=== PATIENT | male | born 1960 | race American Indian/Alaskan Native ===

== ENCOUNTER 2021-07-03 21:24 | Inpatient (IN) | payer MEDICARE ==
[2021-07-03] MEDS ORDERED: FUROSEMIDE 40 MG/4 ML INJ IV ONE (21:37)
[2021-07-03] MEDS ORDERED: MIDAZOLAM/NS Drip 100mg/100ml 100 MG/100 ML BAG IV ONE (21:55)
[2021-07-03] MEDS ORDERED: MIDAZOLAM/NS Drip 100mg/100ml 100 MG/100 ML BAG IV SCH (22:00)
[2021-07-03] MEDS ORDERED: NITROGLYCERIN DRIP 50 MG/250 ML BOTTLE IV SCH (22:00)
[2021-07-03] MEDS ORDERED: MIDAZOLAM 5 MG/5 ML INJ MDV IV ONE (22:03)
[2021-07-03 22:29] LABS: Hematocrit 55.6 % (35.5-45.6); Hemoglobin 17.7 gm/dl (11.8-15.2); Mean Corpuscular HGB Conc 32 % (32-34); Mean Corpuscular Volume 90 fl (84-94); Platelet Count 158 K/mm3 (140-440); Red Blood Count 6.19 M/mm3 (3.65-5.03); Red Cell Distribution Width 13.4 % (13.2-15.2)
[2021-07-03 22:36] LABS: Albumin 4.1 g/dL (3.9-5); Calcium 9.1 mg/dL (8.4-10.2)
--- NOTE | 2021-07-03 22:44 | XRay Report ---
CHEST 1 VIEW 07/03/2021 10:06 PM INDICATION / CLINICAL INFORMATION: Dyspnea. COMPARISON: None FINDINGS: SUPPORT DEVICES: Endotracheal tube terminates 4.6 cm above ryan. HEART / MEDIASTINUM: No significant abnormality. LUNGS / PLEURA: Diffuse bilateral airspace disease, slightly worsened right lung. No pneumothorax. ADDITIONAL FINDINGS: No significant additional findings. IMPRESSION: 1. Bilateral airspace disease concerning for pneumonia. 2. Endotracheal tube is in good position. Signer Name: Rhys Cisneros MD Signed: 07/03/2021 10:39 PM Workstation Name: [id number]
[2021-07-03] MEDS ORDERED: cefTRIAXone/NS 1 GM/50 ML 1 GM/50 ML BAG IV ONE (23:02)
--- NOTE | 2021-07-03 23:35 | Emergency Department Report ---
ED Shortness of Breath HPI - General Chief Complaint: Dyspnea/Respdistress Stated Complaint: CARDIAC ARREST Time Seen by Provider: 07/03/21 21:37 Source: EMS Mode of arrival: Stretcher Limitations: Other - History of Present Illness Initial Comments: Possible pulmonary edema. Patient was transferred to the er for rispiratory distress. ems gave 2.5 mg ativan in route so the patient could tolerate the CPap. Patient arrested as soon as they walked in the door. MD Complaint: shortness of breath -: Gradual, days(s) Pain Scale: 8 Consistency: constant Known History Of: diabetes, other Associated Symptoms: chest pain, sputum production Treatments Prior to Arrival: oxygen - Related Data Allergies Allergy/AdvReac Type Severity Reaction Status Date / Time No Known Allergies Allergy Verified 07/03/21 21:54 ED Review of Systems ROS: Stated complaint: CARDIAC ARREST Other details as noted in HPI Comment: Unobtainable due to pts medical conditions ED Past Medical Hx - Past Medical History Previous Medical History?: No Hx Hypertension: Yes Hx Diabetes: Yes - Surgical History Past Surgical History?: No ED Physical Exam - General Limitations: Other General appearance: alert, in distress, obese - Head Head exam: Present: atraumatic, normocephalic - Eye Eye exam: Present: normal appearance - ENT ENT exam: Present: mucous membranes moist - Neck Neck exam: Present: normal inspection - Respiratory Respiratory exam: Present: rales, rhonchi, accessory muscle use, decreased breath sounds. Absent: respiratory distress - Cardiovascular Cardiovascular Exam: Present: normal rhythm, tachycardia. Absent: systolic murmur, diastolic murmur, rubs, gallop - GI/Abdominal GI/Abdominal exam: Present: soft, normal bowel sounds - Rectal Rectal exam: Present: deferred - Extremities Exam Extremities exam: Present: normal inspection - Back Exam Back exam: Present: normal inspection - Neurological Exam Neurological exam: Present: alert, oriented X3 - Psychiatric Psychiatric exam: Present: normal affect, normal mood - Skin Skin exam: Present: warm, dry, intact, normal color. Absent: rash ED Course Vital Signs 07/03/21 22:46 Pulse Rate 90 Respiratory 0 L Rate Blood Pressure 78/55 O2 Sat by Pulse 96 Oximetry - Reevaluation(s) Reevaluation #1: 07/03/21 23:30 intubated on arrival pt bit the tube and had to re intubate 07/03/21 23:38 started on nitro drip , lasix and ventillation 07/03/21 23:[address] Pathak for ICU admission - Intubation Time Out Performed: Yes Sedative: Versed Paralytic: Succinylcholine Mg Given: 100 Laryngoscope: fiberoptic video scope Size: 4 Assist Device Used: fiberoptic device ET Tube Size: 7.5 Tube Secured Depth (cm): 24 Tube Secured Location: lips Tube Placement Confirmation: visualized tube passing t, equal breath sounds bilat, no breath sounds over epi, confirmation by capnometr Patient Tolerated Procedure: well, no complications ED Medical Decision Making - Lab Data Result diagrams: 07/03/21 21:54 07/03/21 21:54 Critical care attestation.: If time is entered above; I have spent that time in minutes in the direct care of this critically ill patient, excluding procedure time. ED Disposition Clinical Impression: SOB (shortness of breath), Acute respiratory failure, Acute pulmonary edema Disposition: ADMITTED INPATIENT Is pt being admited?: Yes Does the pt Need Aspirin: No Condition: Critical Instructions: Pulmonary Edema (ED)
[2021-07-03 23:41] LABS: INR 0.9 (0.87-1.13)
[2021-07-03 23:43] LABS: Creatine Kinase MB 11.1 ng/mL (0.0-4.0)
[2021-07-04 01:01] LABS: Alanine Aminotransferase 26 units/L (7-56); Albumin 3.9 g/dL (3.9-5)
[2021-07-04 01:12] LABS: Bilirubin,Direct < 0.2 mg/dL (0-0.2)
[2021-07-04] MEDS ORDERED: MORPHINE 2 MG/1 ML INJ IV PRN (02:20)
[2021-07-04] MEDS ORDERED: ONDANSETRON 4 MG/2 ML INJ IV PRN (02:20)
[2021-07-04] MEDS ORDERED: HYDROmorphone 1 MG/1 ML INJ IV PRN (02:20)
[2021-07-04] MEDS ORDERED: ACETAMINOPHEN 325 MG TAB PO PRN (02:20)
[2021-07-04] MEDS ORDERED: ALBUTEROL 2.5 MG/3 ML NEBU IH PRN (02:20)
[2021-07-04 02:30] LABS: Eosinophils % (Manual) 0 % (0.0-4.3); Total Cells Counted 100; Toxic Granulation Few
--- NOTE | 2021-07-04 02:30 | History and Physical Report ---
History of Present Illness Date of examination: 07/04/21 Date of admission: 07/04/21 Chief complaint: Shortness of breath Cardiac arrest History of present illness: 61 years old male with history of hypertension and diabetes was brought to the hospital because of respiratory distress. EMS brought the patient for possible pulmonary edema. EMS gave 2.5 mg of Ativan in route so that patient could tolerate the CPAP. Patient arrested as soon as they walked in the emergency room door. Subsequently patient was intubated. In the emergency room patient WBC is 11.8, glucose 454, lactic acid 7.20. Chest x-ray shows bilateral airspace disease concerning for pneumonia. proBNP 342.5. patient clinically found congestive heart failure exacerbation. So going to admit to the ICU will consult cardiology as well as critical care for evaluation Past History Past Medical History: diabetes, hypertension Medications and Allergies Allergies Allergy/AdvReac Type Severity Reaction Status Date / Time No Known Allergies Allergy Verified 07/03/21 21:54 Active Meds: Active Medications Nitroglycerin/Dextrose (Tridil Drip 50mg/250ml) 50 mg in 250 mls @ 3 mls/hr IV TITR [facility]; Protocol Last Admin: 07/03/21 22:10 Dose: 10 mcg/min, 3 mls/hr MIDAZOLAM/NS Drip 100mg/100ml (Midazolam/Ns Drip 100mg/100ml) 100 mg in 100 mls @ 1 mls/hr IV TITR [facility]; Protocol Last Admin: 07/03/21 22:00 Dose: 5 mg/hr, 5 mls/hr Propofol (Diprivan 10 Mg/Ml) 1,000 mg in 100 mls @ 2.994 mls/hr IV TITR [facility]; Protocol Last Admin: 07/04/21 00:34 Dose: 50 mcg/kg/min, 29.937 mls/hr Insulin Human Lispro (Insulin Lispro 100 Unit/Ml) 0 unit SUB-Q Q6H [facility]; Protocol Review of Systems Cardiovascular: orthopnea, edema, shortness of breath, dyspnea on exertion, paroxysmal nocturnal dyspnea Respiratory: shortness of breath, dyspnea on exertion Exam - Constitutional Vitals: Temp Pulse Resp BP Pulse Ox 98.4 F 63 30 H 114/62 98 07/04/21 00:47 07/04/21 01:01 07/04/21 01:01 07/04/21 01:01 07/04/21 01:01 General appearance: Present: severe distress - EENT Eyes: Present: PERRL ENT: hearing intact, clear oral mucosa - Neck Neck: Present: supple, normal ROM - Respiratory Respiratory effort: normal Respiratory: bilateral: rales - Cardiovascular Heart Sounds: Present: S1 & S2. Absent: rub, click - Extremities Extremities: pulses symmetrical, No edema Peripheral Pulses: within normal limits - Abdominal General gastrointestinal: Present: soft, non-tender, non-distended, normal bowel sounds Male genitourinary: Present: normal - Integumentary Integumentary: Present: clear, warm, dry - Musculoskeletal Musculoskeletal: gait normal, strength equal bilaterally - Psychiatric Psychiatric: appropriate mood/affect, intact judgment & insight - Neurologic Neurologic: CNII-XII intact, moves all extremities HEART Score - HEART Score Troponin: Troponin T 0.015 ng/mL (0.00-0.029) 07/03/21 21:54 Results - Labs CBC & Chem 7: 07/03/21 21:54 07/03/21 21:54 Labs: Laboratory Last Values WBC 11.8 K/mm3 (4.5-11.0) H 07/03/21 21:54 RBC 6.19 M/mm3 (3.65-5.03) H 07/03/21 21:54 Hgb 17.7 gm/dl (11.8-15.2) H 07/03/21 21:54 Hct 55.6 % (35.5-45.6) H 07/03/21 21:54 MCV 90 fl (84-94) 07/03/21 21:54 MCH 29 pg (28-32) 07/03/21 21:54 MCHC 32 % (32-34) 07/03/21 21:54 RDW 13.4 % (13.2-15.2) 07/03/21 21:54 Plt Count 158 K/mm3 (140-440) 07/03/21 21:54 Lymph % (Auto) Camera Control Operator 07/03/21 21:54 [place] % (Auto) Camera Control Operator 07/03/21 21:54 Eos % (Auto) Camera Control Operator 07/03/21 21:54 Baso % (Auto) Camera Control Operator 07/03/21 21:54 Lymph # (Auto) Camera Control Operator 07/03/21 21:54 [place] # (Auto) Camera Control Operator 07/03/21 21:54 Eos # (Auto) Camera Control Operator 07/03/21 21:54 Baso # (Auto) Camera Control Operator 07/03/21 21:54 Seg Neutrophils % Camera Control Operator 07/03/21 21:54 Seg Neutrophils # Camera Control Operator 07/03/21 21:54 PT 13.1 Sec. (12.2-14.9) 07/03/21 22:56 INR 0.90 (0.87-1.13) 07/03/21 22:56 ABG pH 7.127 (7.320-7.450) L 07/03/21 22:00 POC ABG pCO2 56.8 mmHg (32.0-48.0) H 07/03/21 22:00 POC ABG pO2 109.0 mmHg (83-108) H 07/03/21 22:00 POC ABG HCO3 18.3 07/03/21 22:00 ABG O2 Saturation 96.8 (0-100) 07/03/21 22:00 POC ABG Base Excess -11.7 07/03/21 22:00 ABG Hemoglobin 18.5 (12.0-17.5) H 07/03/21 22:00 ABG Oxyhemoglobin 96.3 (94-98) 07/03/21 22:00 ABG Methemoglobin 0.2 (0.0-1.5) 07/03/21 22:00 Carboxyhemoglobin 0.3 (0.5-1.5) L 07/03/21 22:00 FiO2 % 100 07/03/21 22:00 Sodium 137 mmol/L (137-145) 07/03/21 21:54 Potassium 4.0 mmol/L (3.6-5.0) 07/03/21 21:54 Chloride 99.6 mmol/L (98-107) 07/03/21 21:54 Carbon Dioxide 18 mmol/L (22-30) L 07/03/21 21:54 Anion Gap 23 mmol/L 07/03/21 21:54 BUN 17 mg/dL (9-20) 07/03/21 21:54 Creatinine 1.5 mg/dL (0.8-1.3) H 07/03/21 21:54 Estimated GFR 57 ml/min 07/03/21 21:54 BUN/Creatinine Ratio 11 % 07/03/21 21:54 Glucose 454 mg/dL (75-100) H 07/03/21 21:54 POC Glucose 446 mg/dL (70-105) H 07/04/21 00:55 Lactic Acid 7.20 mmol/L (0.7-2.0) H* 07/03/21 21:54 Calcium 9.1 mg/dL (8.4-10.2) 07/03/21 21:54 Magnesium 2.20 mg/dL (1.7-2.3) 07/03/21 21:54 Total Bilirubin 0.40 mg/dL (0.1-1.2) 07/04/21 00:26 Direct Bilirubin < 0.2 mg/dL (0-0.2) 07/04/21 00:26 Indirect Bilirubin 0.2 mg/dL 07/04/21 00:26 AST 27 units/L (5-40) 07/04/21 00:26 ALT 26 units/L (7-56) 07/04/21 00:26 Alkaline Phosphatase 90 units/L (35-129) 07/04/21 00:26 Total Creatine Kinase 596 units/L (55-170) H 07/03/21 21:54 CK-MB (CK-2) 11.1 ng/mL (0.0-4.0) H 07/03/21 21:54 CK-MB (CK-2) Rel Index 1.8 (0-4) 07/03/21 21:54 Troponin T 0.015 ng/mL (0.00-0.029) 07/03/21 21:54 NT-Pro-B Natriuret Pep 342.5 pg/mL (0-900) 07/03/21 23:04 Total Protein 7.1 g/dL (6.3-8.2) 07/04/21 00:26 Albumin 3.9 g/dL (3.9-5) 07/04/21 00:26 Albumin/Globulin Ratio 1.2 % 07/04/21 00:26 Lipase 21 units/L (13-60) 07/03/21 21:54 HIV 1&2 Antibody Rapid Non react (Non React) 07/04/21 00:26 HIV P24 Antigen Non react (Non React) 07/04/21 00:26 - Imaging and Cardiology Chest x-ray: report reviewed Assessment and Plan VTE prophylaxis?: Chemical Plan of care discussed with patient/family: Yes - Patient Problems (1) Acute exacerbation of CHF (congestive heart failure) Current Visit: Yes Status: Acute Plan to address problem: Admit the patient to the medical ICU. Patient is on vent. Fluid restriction. Maintain input output. Daily weight. Lasix 40 mg IV every 12 hours. Echocardiogram. Cardiology evaluation (2) Acute respiratory failure Current Visit: Yes Status: Acute Plan to address problem: Patient is a status post intubation. DuoNeb by nebulizer every 4 hours. Albuterol via nebulizer every 4 hours as needed. Critical care evaluation (3) Pneumonia Current Visit: Yes Status: Acute Plan to address problem: Rocephin 2 g IV daily. Zithromax to 50 mg p.o. daily. DuoNeb by nebulizer every 4 hours. Blood culture and sputum culture. Critical care evaluation (4) Hypertension Current Visit: Yes Status: Acute Plan to address problem: Hydralazine 10 mg IV every 6 hours as needed. We continue the home medication (5) Diabetes Current Visit: Yes Status: Acute Plan to address problem: Humalog sliding scale every 6 hours with moderate dose coverage. Diabetic education (6) DVT prophylaxis Current Visit: Yes Status: Acute Plan to address problem: Heparin 5000 units subcu every 8 hours for DVT prophylaxis. Pepcid 20 mg p.o. twice daily for GI prophylaxis. Patient is a full code
[2021-07-04] MEDS ORDERED: DEXTROSE 50% IN WATER (25GM) 50 ML SYRINGE IV PRN (02:33)
[2021-07-04 02:42] LABS: Platelet Estimate Consistent w Auto; RBC Morphology Normal
[2021-07-04] MEDS: cefTRIAXone/NS 2 GM/100 ML 2 GM/100 ML BAG IV SCH (05:22)
[2021-07-04] MEDS ORDERED: FUROSEMIDE 40 MG/4 ML INJ IV SCH (06:00)
[2021-07-04] MEDS: INSULIN LISPRO 100 UNIT/ML SUB-Q SCH ×4 (06:44→21:57)
[2021-07-04 06:53] LABS: Hepatitis B Surface Antigen Non-Reactive (Negative); Hepatitis C Virus Antibody Non-Reactive (NonReactive)
[2021-07-04] MEDS ORDERED: fentaNYL 100 MCG/2 ML INJ IV PRN (08:56)
[2021-07-04] MEDS ORDERED: fentaNYL DRIP Premix 2,000 MCG/100 ML BAG IV SCH (09:00)
--- NOTE | 2021-07-04 09:10 | Consultation ---
History of Present Illness Consult date: 07/04/21 Reason for Consult: Post cardiac arrest in route History of present illness: Shortness of breath Cardiac arrest History of present illness: 61 years old male with history of hypertension and diabetes was brought to the hospital because of respiratory distress. EMS brought the patient for possible pulmonary edema. EMS gave 2.5 mg of Ativan in route so that patient could tolerate the CPAP. Patient arrested as soon as they walked in the emergency room door. Subsequently patient was intubated. In the emergency room patient WBC is 11.8, glucose 454, lactic acid 7.20. Chest x-ray shows bilateral airspace disease concerning for pneumonia. proBNP 342.5. patient clinically found congestive heart failure exacerbation. So going to admit to the ICU will consult cardiology as well as critical care for evaluation today neurology consulted for evaluation of status CT/ MRI brain is pending he is on propofol and fentanyl intubated G#454 lactic acid is #7.2--3.7 Bun/cr#17/1.5 Past History Past Medical History: diabetes, hypertension Medications and Allergies Allergies Allergy/AdvReac Type Severity Reaction Status Date / Time No Known Allergies Allergy Verified 07/03/21 21:54 Active Meds: Active Medications Nitroglycerin/Dextrose (Tridil Drip 50mg/250ml) 50 mg in 250 mls @ 3 mls/hr IV TITR [facility]; Protocol Last Admin: 07/03/21 22:10 Dose: 10 mcg/min, 3 mls/hr MIDAZOLAM/NS Drip 100mg/100ml (Midazolam/Ns Drip 100mg/100ml) 100 mg in 100 mls @ 1 mls/hr IV TITR [facility]; Protocol Last Admin: 07/03/21 22:00 Dose: 5 mg/hr, 5 mls/hr Propofol (Diprivan 10 Mg/Ml) 1,000 mg in 100 mls @ 2.994 mls/hr IV TITR [facility]; Protocol Last Admin: 07/04/21 00:34 Dose: 50 mcg/kg/min, 29.937 mls/hr Insulin Human Lispro (Insulin Lispro 100 Unit/Ml) 0 unit SUB-Q Q6H [facility]; Protocol Review of Systems Cardiovascular: orthopnea, edema, shortness of breath, dyspnea on exertion, paroxysmal nocturnal dyspnea Respiratory: shortness of breath, dyspnea on exertion Past History Past Medical History: diabetes, hypertension Medications and Allergies Allergies Allergy/AdvReac Type Severity Reaction Status Date / Time No Known Allergies Allergy Verified 07/03/21 21:54 Active Meds: Active Medications Acetaminophen (Acetaminophen 325 Mg Tab) 650 mg PO Q4H PRN PRN Reason: Pain MILD(1-3)/Fever >100.5/[place] Albuterol (Albuterol 2.5 Mg/3 Ml Nebu) 2.5 mg IH Q3HRT PRN PRN Reason: Shortness Of Breath Albuterol/Ipratropium (Ipratropium/Albuterol Sulfate 3 Ml Ampul.Neb) 1 ampul IH Q6HRT [facility] Aspirin (Aspirin 81 Mg Tab Chew) 81 mg PO QDAY [facility] Azithromycin (Azithromycin 250 Mg Tab) 500 mg PO QDAY [facility]; Protocol Dextrose (Dextrose 50% In Water (25gm) 50 Ml Syringe) 50 ml IV Q30MIN PRN; Protocol PRN Reason: Hypoglycemia Famotidine (Famotidine 20 Mg/2 Ml Inj) 20 mg IV BID [facility] Fentanyl (Fentanyl 100 Mcg/2 Ml Inj) 50 mcg IV Q10MIN PRN PRN Reason: ANALGESIA Furosemide (Furosemide 40 Mg/4 Ml Inj) 40 mg IV BID@0600,1800 [facility] Last Admin: 07/04/21 05:22 Dose: 40 mg Heparin Sodium (Porcine) (Heparin 5,000 Unit/1 Ml Vial) 5,000 unit SUB-Q Q12HR [facility] Hydromorphone HCl (Hydromorphone 1 Mg/1 Ml Inj) 0.5 mg IV Q3H PRN PRN Reason: Pain , Severe (7-10) Nitroglycerin/Dextrose (Tridil Drip 50mg/250ml) 50 mg in 250 mls @ 3 mls/hr IV TITR [facility]; Protocol Last Admin: 07/03/21 22:10 Dose: 10 mcg/min, 3 mls/hr MIDAZOLAM/NS Drip 100mg/100ml (Midazolam/Ns Drip 100mg/100ml) 100 mg in 100 mls @ 1 mls/hr IV TITR [facility]; Protocol Last Titration: 07/04/21 04:30 Dose: 1 mg/hr, 1 mls/hr Propofol (Diprivan 10 Mg/Ml) 1,000 mg in 100 mls @ 2.994 mls/hr IV TITR [facility]; Protocol Last Admin: 07/04/21 07:26 Dose: 20 mcg/kg/min, 11.975 mls/hr Ceftriaxone Sodium (Rocephin/Ns 2 Gm/100 Ml) 2 gm in 100 mls @ 200 mls/hr IV Q 24H [facility]; Protocol Last Admin: 07/04/21 05:22 Dose: 200 mls/hr Fentanyl Citrate (Fentanyl Drip Premix) 2,000 mcg in 100 mls @ 4.965 mls/hr IV TITR [facility]; Protocol Insulin Human Lispro (Insulin Lispro 100 Unit/Ml) 0 unit SUB-Q Q6H [facility]; Protocol Last Admin: 07/04/21 08:59 Dose: 10 unit Morphine Sulfate (Morphine 2 Mg/1 Ml Inj) 2 mg IV Q4H PRN PRN Reason: Pain, Moderate (4-6) Ondansetron HCl (Ondansetron 4 Mg/2 Ml Inj) 4 mg IV Q8H PRN PRN Reason: Nausea And Vomiting Sodium Chloride (Sodium Chloride 0.9% 10 Ml Flush Syringe) 10 ml IV BID [facility] Sodium Chloride (Sodium Chloride 0.9% 10 Ml Flush Syringe) 10 ml IV PRN PRN PRN Reason: LINE FLUSH Physical Examination - Vital Signs Vital Signs: Vital Signs Pulse Resp 117 H 21 07/03/21 21:40 07/03/21 21:40 - Constitutional General appearance: uncomfortable, other (slightly agitated on vent.) - EENT EENT: Present: PERRL, mucous membranes moist - Respiratory Respiratory: Present: lungs clear, rhonchi - Cardiovascular Cardiovascular: Present: regular rate, normal S1, normal S2 Extremities: Present: no peripheral edema bilatateraly, no clubbing, cyanosis - Gastrointestinal Gastrointestinal: Present: normoactive bowel sounds - Integumentary Integumentary: Present: normal - Neurologic Cranial nerve examination: PERRL, EOMI, intact Speech examination: other (respond to simple commands , intubated, sedated) Detailed motor examination: grossly full strength in Results - Laboratory Findings CBC and BMP: 07/03/21 21:54 07/03/21 21:54 Abnormal Lab Findings: Abnormal Labs 07/03/21 07/03/21 07/03/21 21:54 21:54 21:54 WBC 11.8 H RBC 6.19 H Hgb 17.7 H Hct 55.6 H Seg Neuts % (Manual) 36.0 L Lymphocytes % (Manual) 56.0 H Lymphocytes # (Manual) 6.6 H ABG pH POC ABG pCO2 POC ABG pO2 ABG Hemoglobin Carboxyhemoglobin Carbon Dioxide 18 L Creatinine 1.5 H Glucose 454 H POC Glucose Lactic Acid 7.20 H* Total Creatine Kinase CK-MB (CK-2) 07/03/21 07/03/21 07/04/21 21:54 22:00 00:39 WBC RBC Hgb Hct Seg Neuts % (Manual) Lymphocytes % (Manual) Lymphocytes # (Manual) ABG pH 7.127 L POC ABG pCO2 56.8 H POC ABG pO2 109.0 H ABG Hemoglobin 18.5 H Carboxyhemoglobin 0.3 L Carbon Dioxide Creatinine Glucose POC Glucose Lactic Acid 3.70 H* Total Creatine Kinase 596 H CK-MB (CK-2) 11.1 H 07/04/21 07/04/21 07/04/21 00:55 06:19 08:40 WBC RBC Hgb Hct Seg Neuts % (Manual) Lymphocytes % (Manual) Lymphocytes # (Manual) ABG pH POC ABG pCO2 POC ABG pO2 ABG Hemoglobin Carboxyhemoglobin Carbon Dioxide Creatinine Glucose POC Glucose 446 H 447 H 437 H Lactic Acid Total Creatine Kinase CK-MB (CK-2) Assessment and Plan Assessment and Plan 61 years old male with history of hypertension and diabetes was brought to the hospital because of respiratory distress. EMS brought the patient for possible pulmonary edema. EMS gave 2.5 mg of Ativan in route so that patient could tolerate the CPAP. Patient arrested as soon as they walked in the emergency room door. Subsequently patient was intubated. - Patient Problems # Pt. is post cardiac arrest -occurred in ER after giving pt. Ativan - he was resuscitated momentarily and intubated -he is sedated on Propofol and fentanyl -pt. is moving all limbs and respond to commands -CT/MRI brain are pending -suggest cut down sedation as possible/ might need to consider precedex for joseph tion/agitation -Brain MRI wo Gd -EEG ? -treat underlying electrolytes abnormality and infection # Acute exacerbation of CHF (congestive heart failure) -Admit the patient to the medical ICU. Patient is on vent. Fluid restriction. Maintain input output. Daily weight. Lasix 40 mg IV every 12 hours. Echocardiogram. Cardiology evaluation # Acute respiratory failure -Patient is a status post intubation. DuoNeb by nebulizer every 4 hours. Albuterol via nebulizer every 4 hours as needed. Critical care evaluation # Pneumonia -Rocephin 2 g IV daily. Zithromax to 50 mg p.o. daily. DuoNeb by nebulizer every 4 hours. Blood culture and sputum culture. Critical care evaluation #Hypertension -Hydralazine 10 mg IV every 6 hours as needed. We continue the home medication # Diabetes/ poorly controlled -G#454 -Hco3#18 -Humalog sliding scale every 6 hours with moderate dose coverage. Diabetic education # DVT prophylaxis -Heparin 5000 units subcu every 8 hours for DVT prophylaxis. Pepcid 20 mg p.o. twice daily for GI prophylaxis. Patient is a full code PLAN 1- Treat underling infection and electrolytes abnormalities/Glucose 2- cut down sedation consider precedex 3- Brain MRI 4- Over all prognosis is good to guarded will follow
[2021-07-04] MEDS: FAMOTIDINE 20 MG/2 ML INJ IV SCH ×2 (09:32→21:40)
[2021-07-04] MEDS: HEPARIN 5,000 UNIT/1 ML VIAL SUB-Q SCH ×2 (09:32→21:40)
[2021-07-04] MEDS: ASPIRIN 81 MG TAB CHEW PO SCH (09:32)
[2021-07-04 09:45] LABS: ABG Base Excess -3.9 mmol/L (-2.0-3.0); ABG Methemoglobin 0.5 % (0.0-1.5); ABG Oxygen Saturation 99.2 % (95.0-99.0); ABG PCO2 29.9 mm Hg; ABG PH 7.421 pH Units (7.350-7.450); ABG PO2 186.1 mm Hg (80.0-90.0)
[2021-07-04] MEDS: IPRATROPIUM/ALBUTEROL SULFATE 3 ML AMPUL.NEB IH SCH ×3 (09:48→19:44)
[2021-07-04] MEDS ORDERED: AZITHROMYCIN 250 MG TAB PO SCH (10:00)
[2021-07-04] MEDS ORDERED: AZITHROMYCIN/NS 500 MG/250 ML 500 MG/250 ML BAG IV SCH (10:00)
--- NOTE | 2021-07-04 10:03 | Consultation ---
History of Present Illness Consult date: 07/04/21 Reason for consult: other (Cardiac arrest, witnessed) History of present illness: 61 y/o male with cardiac arrest in route to ED after getting Ativan to tolerate CPAP therapy. CXR shows bilateral alveolar infiltrates, likely pulmonary edema and hypertensive on arrival. I spoke with ED last night about admission and asked them to stop nitro and place on Cardene drip but this was not done. This am current on diprovan and fent, versed just stopped. Not sure why he needed so much sedation. No repeat CXR this am. BP still elevated. Making good urine. Blood sugars are also high. Remainder is negative. Past History Past Medical History: diabetes, hypertension Medications and Allergies Allergies Allergy/AdvReac Type Severity Reaction Status Date / Time No Known Allergies Allergy Verified 07/03/21 21:54 Active Meds: Active Medications Acetaminophen (Acetaminophen 325 Mg Tab) 650 mg PO Q4H PRN PRN Reason: Pain MILD(1-3)/Fever >100.5/[place] Albuterol (Albuterol 2.5 Mg/3 Ml Nebu) 2.5 mg IH Q3HRT PRN PRN Reason: Shortness Of Breath Albuterol/Ipratropium (Ipratropium/Albuterol Sulfate 3 Ml Ampul.Neb) 1 ampul IH Q6HRT [facility] Aspirin (Aspirin 81 Mg Tab Chew) 81 mg PO QDAY [facility] Last Admin: 07/04/21 09:32 Dose: 81 mg Dextrose (Dextrose 50% In Water (25gm) 50 Ml Syringe) 50 ml IV Q30MIN PRN; Protocol PRN Reason: Hypoglycemia Famotidine (Famotidine 20 Mg/2 Ml Inj) 20 mg IV BID [facility] Last Admin: 07/04/21 09:32 Dose: 20 mg Fentanyl (Fentanyl 100 Mcg/2 Ml Inj) 50 mcg IV Q10MIN PRN PRN Reason: ANALGESIA Heparin Sodium (Porcine) (Heparin 5,000 Unit/1 Ml Vial) 5,000 unit SUB-Q Q12HR [facility] Last Admin: 07/04/21 09:32 Dose: 5,000 unit Hydromorphone HCl (Hydromorphone 1 Mg/1 Ml Inj) 0.5 mg IV Q3H PRN PRN Reason: Pain , Severe (7-10) Nitroglycerin/Dextrose (Tridil Drip 50mg/250ml) 50 mg in 250 mls @ 3 mls/hr IV TITR [facility]; Protocol Last Admin: 07/03/21 22:10 Dose: 10 mcg/min, 3 mls/hr MIDAZOLAM/NS Drip 100mg/100ml (Midazolam/Ns Drip 100mg/100ml) 100 mg in 100 mls @ 1 mls/hr IV TITR [facility]; Protocol Last Titration: 07/04/21 09:54 Dose: 0 mg/hr, 0 mls/hr Propofol (Diprivan 10 Mg/Ml) 1,000 mg in 100 mls @ 2.994 mls/hr IV TITR [facility]; Protocol Last Titration: 07/04/21 09:30 Dose: 25 mcg/kg/min, 14.969 mls/hr Ceftriaxone Sodium (Rocephin/Ns 2 Gm/100 Ml) 2 gm in 100 mls @ 200 mls/hr IV Q24H [facility]; Protocol Last Admin: 07/04/21 05:22 Dose: 200 mls/hr Fentanyl Citrate (Fentanyl Drip Premix) 2,000 mcg in 100 mls @ 4.965 mls/hr IV TITR [facility]; Protocol Last Admin: 07/04/21 09:45 Dose: 1 mcg/kg/hr, 4.965 mls/hr Azithromycin (Zithromax/Ns) 500 mg in 250 mls @ 250 mls/hr IV Q24H [facility]; Prot ocol Insulin Human Lispro (Insulin Lispro 100 Unit/Ml) 0 unit SUB-Q Q6H [facility]; Protocol Last Admin: 07/04/21 08:59 Dose: 10 unit Morphine Sulfate (Morphine 2 Mg/1 Ml Inj) 2 mg IV Q4H PRN PRN Reason: Pain, Moderate (4-6) Ondansetron HCl (Ondansetron 4 Mg/2 Ml Inj) 4 mg IV Q8H PRN PRN Reason: Nausea And Vomiting Sodium Chloride (Sodium Chloride 0.9% 10 Ml Flush Syringe) 10 ml IV BID [facility] Last Admin: 07/04/21 09:33 Dose: 10 ml Sodium Chloride (Sodium Chloride 0.9% 10 Ml Flush Syringe) 10 ml IV PRN PRN PRN Reason: LINE FLUSH Review of Systems ROS unobtainable: due to endotracheal tube, due to mental status Physical Examination Vital signs: Vital Signs Pulse Resp 117 H 21 07/03/21 21:40 07/03/21 21:40 General appearance: no acute distress, comatose Eyes: non-icteric ENT: other (orally intubated and sedated) Neck: supple Effort: normal Ascultation: Bilateral: rales Percussion: Bilateral: not dull Cardiovascular: regular rate and rhythm Gastrointestinal: normoactive bowel sounds, soft, non-tender Extremities: no edema, pulses normal Musculoskeletal: no deformities unable to assess Results - Laboratory Findings CBC and BMP: 07/03/21 21:54 07/03/21 21:54 ABG ABG pH 7.421 pH Units (7.350-7.450) 07/04/21 09:15 POC ABG pCO2 56.8 mmHg (32.0-48.0) H 07/03/21 22:00 ABG pCO2 29.9 mm Hg 07/04/21 09:15 POC ABG pO2 109.0 mmHg (83-108) H 07/03/21 22:00 ABG pO2 186.1 mm Hg (80.0-90.0) H 07/04/21 09:15 POC ABG HCO3 18.3 07/03/21 22:00 ABG O2 Saturation 99.2 % (95.0-99.0) H 07/04/21 09:15 PT/INR, D-dimer PT 13.1 Sec. (12.2-14.9) 07/03/21 22:56 INR 0.90 (0.87-1.13) 07/03/21 22:56 Abnormal lab findings: Abnormal Labs 07/03/21 07/03/21 07/03/21 21:54 21:54 21:54 WBC 11.8 H RBC 6.19 H Hgb 17.7 H Hct 55.6 H Seg Neuts % (Manual) 36.0 L Lymphocytes % (Manual) 56.0 H Lymphocytes # (Manual) 6.6 H ABG pH POC ABG pCO2 POC ABG pO2 ABG pO2 ABG HCO3 ABG O2 Saturation ABG Base Excess ABG Hemoglobin Carboxyhemoglobin Carbon Dioxide 18 L Creatinine 1.5 H Glucose 454 H POC Glucose Lactic Acid 7.20 H* Total Creatine Kinase CK-MB (CK-2) 07/03/21 07/03/21 07/04/21 21:54 22:00 00:39 WBC RBC Hgb Hct Seg Neuts % (Manual) Lymphocytes % (Manual) Lymphocytes # (Manual) ABG pH 7.127 L POC ABG pCO2 56.8 H POC ABG pO2 109.0 H ABG pO2 ABG HCO3 ABG O2 Saturation ABG Base Excess ABG Hemoglobin 18.5 H Carboxyhemoglobin 0.3 L Carbon Dioxide Creatinine Glucose POC Glucose Lactic Acid 3.70 H* Total Creatine Kinase 596 H CK-MB (CK-2) 11.1 H 07/04/21 07/04/21 07/04/21 00:55 06:19 08:40 WBC RBC Hgb Hct Seg Neuts % (Manual) Lymphocytes % (Manual) Lymphocytes # (Manual) ABG pH POC ABG pCO2 POC ABG pO2 ABG pO2 ABG HCO3 ABG O2 Saturation ABG Base Excess ABG Hemoglobin Carboxyhemoglobin Carbon Dioxide Creatinine Glucose POC Glucose 446 H 447 H 437 H Lactic Acid Total Creatine Kinase CK-MB (CK-2) 07/04/21 09:15 WBC RBC Hgb Hct Seg Neuts % (Manual) Lymphocytes % (Manual) Lymphocytes # (Manual) ABG pH POC ABG pCO2 POC ABG pO2 ABG pO2 186.1 H ABG HCO3 19.0 L ABG O2 Saturation 99.2 H ABG Base Excess -3.9 L ABG Hemoglobin Carboxyhemoglobin Carbon Dioxide Creatinine Glucose POC Glucose Lactic Acid Total Creatine Kinase CK-MB (CK-2) - Diagnostic Findings Chest x-ray: image reviewed (mild cardiomegaly wiht pulmonary edema) Assessment and Plan 61 y/o male with cardiac arrest and diabetes. 1. Wean sedation to off as tolerated. Now on Diprovan 5 and still groggy but will follow commands. Fent remains as well 2. Will start weight based insulin therapy. COntinue sliding scale. Hold on feeds as patient maybe a candidate for extubation today. 3. Repeat ABG is good. Dropped fiO2 down to 50%., needs repeat CXR prior to extubation. 4. BP stable for now but may need cardene drip. No nitro as this is not good for BP and will only give patient a headache. 5. Guarded prognosis.
--- NOTE | 2021-07-04 10:28 | Electrocardiograph Report ---
[facility] Test Date: 2021-07-04 Test Time: 07:33:48 Pat Name: DILSHAD JUNE Department: Room: A258 1 Gender: M Pc Technician: RACHEL : 1960 Requested By: ABRIL RODRIGUEZ Order Number: [id number] Reading MD: Peter Richardson Measurements Intervals [place] Rate: 57 P: 43 ME: 205 QRS: -80 QRSD: 125 T: -87 QT: 497 QTc: 483 Interpretive Statements Sinus rhythm Nonspecific IVCD with LAD LVH with secondary repolarization abnormality No previous ECG available for comparison Electronically Signed On 07-04-2021 10:27:51 EST by Peter Richardson
--- NOTE | 2021-07-04 11:27 | XRay Report ---
CHEST 1 VIEW 07/04/2021 10:04 AM INDICATION / CLINICAL INFORMATION: Hypoxemia, pulmonary edema on last film. COMPARISON: 07/03/2021 FINDINGS: SUPPORT DEVICES: Stable, satisfactory device positioning. HEART / MEDIASTINUM: Stable. LUNGS / PLEURA: Moderately improved pulmonary edema. No pneumothorax. ADDITIONAL FINDINGS: No significant additional findings. IMPRESSION: 1. Moderately improved pulmonary edema. Signer Name: Ishaan Powell MD Signed: 07/04/2021 11:22 AM Workstation Name: [id number]
[2021-07-04 12:26] LABS: Mean Corpuscular HGB Conc 34 % (32-34); Mean Corpuscular Volume 87 fl (84-94); Red Blood Count 5.41 M/mm3 (3.65-5.03); Red Cell Distribution Width 13.5 % (13.2-15.2)
[2021-07-04 12:27] LABS: Platelet Count 146 K/mm3 (140-440)
[2021-07-04] MEDS: INSULIN GLARGINE 100 UNITS/ML SUB-Q SCH (12:42)
--- NOTE | 2021-07-04 12:48 | Consultation ---
History of Present Illness Consult date: 07/04/21 Consult reason: other (Cardiopulmonary arrest) History of present illness: Patient is a 61-year-old male who was brought to the emergency room for worsening respiratory distress, and reportedly on arrival to the emergency room culminated in a cardiopulmonary arrest. Patient is currently in the CCU, sedated, on the vent. Associated findings on presentation include and uncontrolled diabetes with blood sugar over 450. Available records do not show any record of prior cardiac history or cardiac work-up. Chest x-ray in the emergency room shows a dense pulmonary infiltrate restricted to the right lung field. EKG is sinus rhythm with left anterior fascicular block and left ventricular hypertrophy. Past History Past Medical History: diabetes, hypertension Medications and Allergies Allergies Allergy/AdvReac Type Severity Reaction Status Date / Time No Known Allergies Allergy Verified 07/03/21 21:54 Active Meds: Active Medications Acetaminophen (Acetaminophen 325 Mg Tab) 650 mg PO Q4H PRN PRN Reason: Pain MILD(1-3)/Fever >100.5/[place] Albuterol (Albuterol 2.5 Mg/3 Ml Nebu) 2.5 mg IH Q3HRT PRN PRN Reason: Shortness Of Breath Albuterol/Ipratropium (Ipratropium/Albuterol Sulfate 3 Ml Ampul.Neb) 1 ampul IH Q6HRT [facility] Last Admin: 07/04/21 09:48 Dose: Not Given Aspirin (Aspirin 81 Mg Tab Chew) 81 mg PO QDAY [facility] Last Admin: 07/04/21 09:32 Dose: 81 mg Dextrose (Dextrose 50% In Water (25gm) 50 Ml Syringe) 50 ml IV Q30MIN PRN; Protocol PRN Reason: Hypoglycemia Famotidine (Famotidine 20 Mg/2 Ml Inj) 20 mg IV BID [facility] Last Admin: 07/04/21 09:32 Dose: 20 mg Fentanyl (Fentanyl 100 Mcg/2 Ml Inj) 50 mcg IV Q10MIN PRN PRN Reason: ANALGESIA Heparin Sodium (Porcine) (Heparin 5,000 Unit/1 Ml Vial) 5,000 unit SUB-Q Q12HR [facility] Last Admin: 07/04/21 09:32 Dose: 5,000 unit Hydromorphone HCl (Hydromorphone 1 Mg/1 Ml Inj) 0.5 mg IV Q3H PRN PRN Reason: Pain , Severe (7-10) Nitroglycerin/Dextrose (Tridil Drip 50mg/250ml) 50 mg in 250 mls @ 3 mls/hr IV TITR [facility]; Protocol Last Admin: 07/03/21 22:10 Dose: 10 mcg/min, 3 mls/hr Propofol (Diprivan 10 Mg/Ml) 1,000 mg in 100 mls @ 2.994 mls/hr IV TITR [facility]; Protocol Last Titration: 07/04/21 12:41 Dose: 0 mcg/kg/min, 0 mls/hr Ceftriaxone Sodium (Rocephin/Ns 2 Gm/100 Ml) 2 gm in 100 mls @ 200 mls/hr IV Q24H [facility]; Protocol Last Admin: 07/04/21 05:22 Dose: 200 mls/hr Fentanyl Citrate (Fentanyl Drip Premix) 2,000 mcg in 100 mls @ 4.965 mls/hr IV TITR [facility]; Protocol Last Titration: 07/04/21 10:27 Dose: 1 mcg/kg/hr, 4.965 mls/hr Azithromycin (Zithromax/Ns) 500 mg in 250 mls @ 250 mls/hr IV Q24H [facility]; Protocol Last Admin: 07/04/21 10:03 Dose: 250 mls/hr Insulin Glargine (Insulin Glargine 100 Units/Ml) 15 units SUB-Q QHS [facility] Last Admin: 07/04/21 12:42 Dose: 15 units Insulin Human Lispro (Insulin Lispro 100 Unit/Ml) 0 unit SUB-Q Q6H [facility]; Protocol Last Admin: 07/04/21 08:59 Dose: 10 unit Morphine Sulfate (Morphine 2 Mg/1 Ml Inj) 2 mg IV Q4H PRN PRN Reason: Pain, Moderate (4-6) Ondansetron HCl (Ondansetron 4 Mg/2 Ml Inj) 4 mg IV Q8H PRN PRN Reason: Nausea And Vomiting Sodium Chloride (Sodium Chloride 0.9% 10 Ml Flush Syringe) 10 ml IV BID [facility] Last Admin: 07/04/21 09:33 Dose: 10 ml Sodium Chloride (Sodium Chloride 0.9% 10 Ml Flush Syringe) 10 ml IV PRN PRN PRN Reason: LINE FLUSH Review of Systems ROS unobtainable: due to endotracheal tube, due to mental status Physical Examination Vital Signs Pulse Resp 117 H 21 07/03/21 21:40 07/03/21 21:40 Results 07/04/21 12:20 07/03/21 21:54 Cardiac Enzymes 07/03/21 07/03/21 07/04/21 Range/Units 21:54 21:54 00:26 AST 29 27 (5-40) units/L CK-MB (CK-2) 11.1 H (0.0-4.0) ng/mL Coagulation 07/03/21 Range/Units 22:56 PT 13.1 (12.2-14.9) Sec. INR 0.90 (0.87-1.13) CBC 07/03/21 07/04/21 Range/Units 21:54 12:20 WBC 11.8 H 17.2 H (4.5-11.0) K/mm3 RBC 6.19 H 5.41 H (3.65-5.03) M/mm3 Hgb 17.7 H 16.0 H (11.8-15.2) gm/dl Hct 55.6 H 47.0 H D (35.5-45.6) % Plt Count 158 146 (140-440) K/mm3 Lymph # (Auto) [employer] [place] # (Auto) [employer] [place] # (Auto) [employer] Bas[place] # (Auto) [employer] Comprehensive Metabolic Panel 07/03/21 07/04/21 Range/Units 21:54 00:26 Sodium 137 (137-145) mmol/L Potassium 4.0 (3.6-5.0) mmol/L Chloride 99.6 (98-107) mmol/L Carbon Dioxide 18 L (22-30) mmol/L BUN 17 (9-20) mg/dL Creatinine 1.5 H (0.8-1.3) mg/dL Glucose 454 H (75-100) mg/dL Calcium 9.1 (8.4-10.2) mg/dL Direct Bilirubin < 0.2 (0-0.2) mg/dL Indirect Bilirubin 0.2 mg/dL AST 29 27 (5-40) units/L ALT 29 26 (7-56) units/L Alkaline Phosphatase 116 90 (35-129) units/L Total Protein 8.1 7.1 (6.3-8.2) g/dL Albumin 4.1 3.9 (3.9-5) g/dL EKG interpretations - Telemetry EKG Rhythm: Sinus Rhythm (With left anterior fascicular block and left ventricle hypertrophy) Assessment and Plan - Patient Problems (1) Cardiopulmonary arrest Current Visit: Yes Status: Acute Plan to address problem: The patient presented to the emergency room with progressive respiratory distress, culminating in respiratory failure in the emergency room. Chest x-ray shows right sided pneumonia. A COVID-19 test is not yet reported. The patient has maintained a stable sinus rhythm. Echocardiogram at the [facility], preliminary findings suggest well-preserved left ventricular systolic function, full echo report is pending.
[2021-07-04 12:49] LABS: Albumin 3.9 g/dL (3.9-5); Calcium 9.5 mg/dL (8.4-10.2)
[2021-07-04 14:09] LABS: Bilirubin,Urine NEG (Negative); Blood,Urine SM (Negative); Color,Urine Yellow (Yellow); Mucus,Urine FEW /HPF; Urobilinogen,Urine < 2.0 mg/dL (<2.0)
[2021-07-04 14:15] LABS: Amphetamine Screen,Urine Negative; Cannabinoid Screen,Urine Negative; Cocaine Screen,Urine Negative; Methadone Screen,Urine Negative; Opiate Screen,Urine Negative
[2021-07-04 14:32] LABS: Benzodiazepines Screen,Urine Positive
--- NOTE | 2021-07-04 16:51 | Event Note ---
Date: 07/04/21 This is a 61-year-old male with HTN, DM, CAD, CHF who presented to emergency department on 07/04 via EMS with respiratory distress. In route patient was given 2.5 mg of Ativan to tolerate CPAP and per documentation patient arrested upon arrival to the emergency department and was subsequently intubated. Work-up in the emergency department revealed leukocytosis, hyperglycemia, lactic acidosis and CXR was read with concerns for pneumonia, pro BNP was 342. Patient was admitted to the hospitalist service with consults to critical care, cardiology. 07/04: Patient made a COVID-19 PUI, urine lites pending, extubated. Started on Lantus. A/P This is a 62-year-old male with HTN, DM, CAD, CHF admitted s/p arrest with acute hypoxic respiratory failure, lactic acidosis, leukocytosis, acute kidney injury. Neuro: Acute metabolic encephalopathy -Sedated with Versed and propofol -Changed to fentanyl and propofol -RASS goal 0 to -1 -Avoid delirium -Reorientation as needed -Maintain sleep-wake cycle -As needed analgesia -MRI brain pending -Neurology consulted, appreciate recommendations Cardiac: S/p cardiorespiratory arrest, h/o HTN, CAD, CHF -Cardiology consulted, appreciate recommendations -Blood pressure monitoring per protocol -Echocardiogram pending Respiratory: Acute hypoxic respiratory failure -CCM consulted, appreciate recommendations -Intubated in the ED on 07/03 with 7.50 ETT at 25 with right left -A.m. vent settings: Assist-control, rate 30, tidal volume 450, PEEP 6, FiO2 80% -See RT notes for titration -Patient extubated to nasal cannula -A.m. ABG and CXR noted -VAP bundle -SPO2 monitoring GI: NAD -24 hours -PPI -Passed bedside swallow -CC cardiac diet (culture/halal) -BR: Senokot : Metabolic acidosis, acute kidney injury likely secondary to vasomotor nephropathy -Consider nephrology consult if worsens -Strict intake and output -Renally dose medications -Avoid nephrotoxic medications -Daily weights -Urine lites pending ID: ? Pneumonia, COVID-19 PUI, lactic acidosis -Antibiotic therapy with Rocephin and azithromycin -COVID-19 PCR pending -f/u blood culture -BC x2 07/04 -UA negative -Monitor WBC and temperature curve Endo: h/o DM -Avoid hypoglycemia -SSI -Accu-Cheks AC at bedtime -Long-acting insulin, titrate as needed Heme: Leukocytosis -Trend CBC -Transfuse hemoglobin less than 7 -Monitor for signs of bleeding -SCDs to BLE while in bed The high probability of a clinically significant, sudden or life threatening deterioration of the [resp/cv] system(s) required my full and direct attention, intervention and personal management. The aggregate critical care time was [60] minutes. This time is in addition to time spent performing reported procedures but includes the following: [x] Data Review and interpretation [x] Patient assessment and monitoring of vital signs [x] Documentation [x] Medication orders and management
[2021-07-04 17:45] LABS: Creatinine,Urine 86.7 mg/dL (0.1-20.0)
[2021-07-04] MEDS: VALSARTAN 160MG TAB PO SCH (21:40)
[2021-07-04] MEDS: hydrALAZINE 25 MG TAB PO SCH ×2 (21:40→21:41)
[2021-07-05] MEDS: cefTRIAXone/NS 2 GM/100 ML 2 GM/100 ML BAG IV SCH (03:00)
[2021-07-05 05:08] LABS: Hematocrit 45.2 % (35.5-45.6); Hemoglobin 15.1 gm/dl (11.8-15.2); Mean Corpuscular HGB Conc 33 % (32-34); Mean Corpuscular Volume 86 fl (84-94); Platelet Count 129 K/mm3 (140-440); Red Blood Count 5.24 M/mm3 (3.65-5.03); Red Cell Distribution Width 13.2 % (13.2-15.2)
[2021-07-05 05:16] LABS: BUN/Creatinine Ratio 11; Blood Urea Nitrogen 16 mg/dL (9-20); Calcium 8.8 mg/dL (8.4-10.2); Hemolysis Index 10
[2021-07-05] MEDS: hydrALAZINE 25 MG TAB PO SCH ×4 (06:04→22:22)
[2021-07-05] MEDS ORDERED: oxyCODONE /ACETAMINOPHEN 5-325MG TAB PO PRN (07:58)
[2021-07-05] MEDS ORDERED: POTASSIUM CHLORIDE ER 20 MEQ TAB PO SCH (08:30)
[2021-07-05] MEDS: INSULIN LISPRO 100 UNIT/ML SUB-Q SCH ×5 (08:37→22:21)
[2021-07-05] MEDS: VALSARTAN 160MG TAB PO SCH (08:40)
--- NOTE | 2021-07-05 08:53 | Progress Note ---
Assessment and Plan - Patient Problems (1) Cardiopulmonary arrest Current Visit: Yes Status: Acute Plan to address problem: He is now able to provide a history, reporting a history of coronary artery disease and ischemic cardiomyopathy. His regular survey analyst is in [place]. He states that he has had a coronary stent procedure in the remote past, followed by a negative Lexiscan thallium stress test about 2 years ago. He also reports a history of paroxysmal atrial fibrillation for which he is on Eliquis. Echocardiogram done on this presentation shows a severe left ventricular dysfunction with ejection fraction 25 to 30%, consistent with his provided hi story. On his presentation with shortness of breath and cardiopulmonary arrest, the initial chest x-ray showed a mostly right-sided infiltrate, but the follow- up chest x-ray the next day shows marked clearing of the lung ritchie, suggesting more likely acute pulmonary edema and not atypical pneumonia. In the setting of a known history of coronary disease and ischemic card iomyopathy, and the current presentation with acute pulmonary edema further aggressive ischemic cardiac work-up will be indicated. Invasive cardiac assessment will be the optimal strategy, contrast angiography will have to be considered judiciously in the setting of chronic kidney disease his current baseline creatinine is 1.4-1.5. Subjective Date of service: 07/05/21 Principal diagnosis: Cardiopulmonary arrest Interval history: The patient has been extubated, today is awake and alert in no acute distress. He is now able to provide a history, reporting a history of coronary artery disease and ischemic cardiomyopathy. His regular survey analyst is in [place]. He states that he has had a coronary stent procedure in the remote past, followed by a negative Lexiscan thallium stress test about 2 years ago. He also reports a history of paroxysmal atrial fibrillation for which he is on Eliquis. Echocardiogram done on this presentation shows a severe left ventricular dysfunction with ejection fraction 25 to 30%, consistent with his provided history. On his presentation with shortness of breath and cardiopulmonary arrest, the initial chest x-ray showed a mostly right-sided infiltrate, but the follow-up chest x-ray the next day shows marked clearing of the lung ritchie, suggesting more likely acute pulmonary edema and not atypical pneumonia. Objective Vital Signs Temp Pulse Pulse Pulse Resp Resp BP 07/05/21 08:40 83 162/97 07/05/21 07:21 99.9 F H 03/09/22 06:43 159/86 07/05/21 06:00 73 20 113/71 07/05/21 05:30 68 17 113/71 07/05/21 05:00 71 18 120/78 07/05/21 04:30 70 17 120/78 07/05/21 04:00 98.7 F 68 70 17 129/69 07/05/21 03:43 82 22 07/05/21 03:30 70 18 138/71 07/05/21 03:00 70 17 151/76 07/05/21 02:30 70 17 162/64 07/05/21 02:00 81 22 180/104 07/05/21 01:30 75 16 167/88 07/05/21 01:00 76 17 162/80 07/05/21 00:30 78 18 158/82 07/05/21 00:00 99.2 F 82 80 22 171/85 07/04/21 23:30 80 18 163/80 07/04/21 23:03 89 22 169/93 07/04/21 23:01 93 H 23 169/93 07/04/21 22:30 81 20 158/89 07/04/21 22:00 82 22 159/83 07/04/21 21:56 86 25 H 07/04/21 21:30 79 18 159/83 07/04/21 21:01 79 17 150/93 07/04/21 20:30 94 H 25 H 158/97 07/04/21 20:08 07/04/21 20:00 99.0 F 75 81 25 H 177/90 07/04/21 19:51 73 19 173/90 07/04/21 19:45 77 21 07/04/21 19:41 74 19 173/90 07/04/21 19:30 72 18 173/90 07/04/21 19:21 75 23 164/90 07/04/21 19:11 78 22 164/90 07/04/21 19:00 76 23 164/90 07/04/21 18:51 71 19 167/83 07/04/21 18:41 73 23 167/83 07/04/21 18:30 70 19 167/83 07/04/21 18:21 73 14 167/91 07/04/21 18:11 74 16 167/91 07/04/21 17:51 74 19 133/82 07/04/21 17:41 78 24 133/82 07/04/21 17:31 80 24 133/82 07/04/21 17:21 75 21 133/82 07/04/21 17:11 76 23 133/82 07/04/21 17:01 73 17 158/85 07/04/21 16:51 74 21 158/85 07/04/21 16:41 77 15 158/85 07/04/21 16:31 74 24 158/85 07/04/21 16:21 70 23 149/92 07/04/21 16:11 72 25 H 149/92 07/04/21 16:01 72 19 149/92 07/04/21 16:00 55 L 18 07/04/21 15:51 74 25 H 147/57 07/04/21 15:41 72 20 147/57 07/04/21 15:31 78 21 147/57 07/04/21 15:21 71 18 151/82 07/04/21 15:11 71 19 151/82 07/04/21 15:01 69 15 151/82 07/04/21 14:51 77 12 131/80 07/04/21 14:41 70 19 131/80 07/04/21 14:30 70 24 131/80 07/04/21 14:21 68 20 142/88 07/04/21 14:11 68 18 142/88 07/04/21 14:01 74 21 142/88 07/04/21 14:00 98.7 F 07/04/21 13:51 69 18 145/82 07/04/21 13:41 69 17 145/82 07/04/21 13:31 67 21 145/82 07/04/21 13:25 07/04/21 13:21 65 20 131/84 07/04/21 13:15 07/04/21 13:11 62 18 131/84 07/04/21 13:10 07/04/21 13:01 59 L 14 131/84 07/04/21 12:51 63 21 142/81 07/04/21 12:41 62 30 H 142/81 07/04/21 12:40 24 07/04/21 12:31 60 30 H 142/81 07/04/21 12:21 59 L 30 H 137/72 07/04/21 12:11 59 L 30 H 137/72 07/04/21 12:01 61 30 H 137/72 07/04/21 12:00 55 L 18 07/04/21 11:51 60 30 H 147/77 07/04/21 11:41 62 30 H 147/77 07/04/21 11:30 61 30 H 147/77 07/04/21 11:21 63 30 H 144/80 07/04/21 11:11 63 30 H 144/80 07/04/21 11:00 63 30 H 144/80 07/04/21 10:51 62 23 136/72 07/04/21 10:41 62 30 H 136/72 07/04/21 10:30 61 30 H 136/72 07/04/21 10:25 62 137/72 07/04/21 10:21 60 30 H 131/75 07/04/21 10:11 60 30 H 131/75 07/04/21 10:01 61 30 H 155/84 07/04/21 10:00 60 07/04/21 09:51 57 L 30 H 155/84 07/04/21 09:41 59 L 30 H 155/84 07/04/21 09:31 59 L 30 H 155/84 07/04/21 09:21 60 30 H 131/78 07/04/21 09:11 61 30 H 131/78 07/04/21 09:00 60 30 H 131/78 07/04/21 08:51 61 30 H 107/68 07/04/21 08:50 61 0 L 131/78 Pulse Ox 07/05/21 08:40 07/05/21 07:21 07/05/21 06:43 07/05/21 06:00 93 07/05/21 05:30 93 07/05/21 05:00 98 07/05/21 04:30 95 07/05/21 04:00 95 07/05/21 03:43 95 07/05/21 03:30 95 07/05/21 03:00 96 07/05/21 02:30 94 07/05/21 02:00 95 07/05/21 01:30 96 07/05/21 01:00 97 07/05/21 00:30 98 07/05/21 00:00 95 07/04/21 23:30 96 07/04/21 23:03 96 07/04/21 23:01 92 07/04/21 22:30 95 07/04/21 22:00 95 07/04/21 21:56 94 07/04/21 21:30 96 07/04/21 21:01 95 07/04/21 20:30 95 07/04/21 20:08 98 07/04/21 20:00 95 07/04/21 19:51 95 07/04/21 19:45 07/04/21 19:41 94 07/04/21 19:30 97 07/04/21 19:21 93 07/04/21 19:11 94 07/04/21 19:00 93 07/04/21 18:51 94 07/04/21 18:41 95 07/04/21 18:30 95 07/04/21 18:21 95 07/04/21 18:11 95 07/04/21 17:51 98 07/04/21 17:41 98 07/04/21 17:31 96 07/04/21 17:21 99 07/04/21 17:11 98 07/04/21 17:01 88 07/04/21 16:51 95 07/04/21 16:41 96 07/04/21 16:31 97 07/04/21 16:21 97 07/04/21 16:11 97 07/04/21 16:01 98 07/04/21 16:00 95 07/04/21 15:51 97 07/04/21 15:41 98 07/04/21 15:31 98 07/04/21 15:21 99 07/04/21 15:11 99 07/04/21 15:01 98 07/04/21 14:51 99 07/04/21 14:41 99 07/04/21 14:30 97 07/04/21 14:21 98 07/04/21 14:11 98 07/04/21 14:01 97 07/04/21 14:00 07/04/21 13:51 97 07/04/21 13:41 97 07/04/21 13:31 96 07/04/21 13:25 96 07/04/21 13:21 96 07/04/21 13:15 97 07/04/21 13:11 98 07/04/21 13:10 97 07/04/21 13:01 100 07/04/21 12:51 100 07/04/21 12:41 100 07/04/21 12:40 100 07/04/21 12:31 100 07/04/21 12:21 100 07/04/21 12:11 99 07/04/21 12:01 100 07/04/21 12:00 95 07/04/21 11:51 98 07/04/21 11:41 100 07/04/21 11:30 100 07/04/21 11:21 100 07/04/21 11:11 100 07/04/21 11:00 100 07/04/21 10:51 100 07/04/21 10:41 100 07/04/21 10:30 99 07/04/21 10:25 100 07/04/21 10:21 98 07/04/21 10:11 99 07/04/21 10:01 99 07/04/21 10:00 07/04/21 09:51 100 07/04/21 09:41 99 07/04/21 09:31 99 07/04/21 09:21 100 07/04/21 09:11 100 07/04/21 09:00 100 07/04/21 08:51 99 07/04/21 08:50 100 - Physical Examination General: No Apparent Distress HEENT: Positive: PERRL Neck: Positive: neck supple Cardiac: Positive: Reg Rate and Rhythm Lungs: Positive: Decreased Breath Sounds Neuro: Positive: Grossly Intact Abdomen: Positive: Soft Skin: Positive: Clear Extremities: Absent: edema - Labs and Meds Cardiac Enzymes 07/04/21 Range/Units 12:20 AST 68 H (5-40) units/L CBC 07/04/21 07/05/21 Range/Units 12:20 04:16 WBC 17.2 H 11.2 H (4.5-11.0) K/mm3 RBC 5.41 H 5.24 H (3.65-5.03) M/mm3 Hgb 16.0 H 15.1 (11.8-15.2) gm/dl Hct 47.0 H D 45.2 (35.5-45.6) % Plt Count 146 129 L (140-440) K/mm3 Comprehensive Metabolic Panel 07/04/21 07/05/21 Range/Units 12:20 04:16 Sodium 137 141 (137-145) mmol/L Potassium 4.1 3.5 L (3.6-5.0) mmol/L Chloride 99.9 107.2 H (98-107) mmol/L Carbon Dioxide 20 L 23 (22-30) mmol/L BUN 22 H 16 (9-20) mg/dL Creatinine 1.7 H 1.4 H (0.8-1.3) mg/dL Glucose 382 H 199 H (75-100) mg/dL Calcium 9.5 8.8 (8.4-10.2) mg/dL AST 68 H (5-40) units/L ALT 30 (7-56) units/L Alkaline Phosphatase 63 (35-129) units/L Total Protein 6.9 (6.3-8.2) g/dL Albumin 3.9 (3.9-5) g/dL
[2021-07-05] MEDS: IPRATROPIUM/ALBUTEROL SULFATE 3 ML AMPUL.NEB IH SCH ×2 (09:04→14:45)
[2021-07-05] MEDS ORDERED: SODIUM CHLORIDE 0.9% 1000 ML 1,000 ML IV SCH (09:45)
[2021-07-05] MEDS ORDERED: SODIUM CHLORIDE 0.9% 500 ML 500 ML IV SCH (10:00)
[2021-07-05] MEDS ORDERED: AZITHROMYCIN 250 MG TAB PO SCH (10:00)
[2021-07-05] MEDS ORDERED: NON-FORMULARY EACH (Apixaban 5 MG Tablet) PO SCH (10:00)
--- NOTE | 2021-07-05 10:23 | Progress Note ---
Assessment and Plan Assessment and Plan 61 years old male with history of hypertension and diabetes was brought to the hospital because of respiratory distress. EMS brought the patient for possible pulmonary edema. EMS gave 2.5 mg of Ativan in route so that patient could tolerate the CPAP. Patient arrested as soon as they walked in the emergency room door. Subsequently patient was intubated. - Patient Problems # Pt. is post cardiac arrest -occurred in ER after giving pt. Ativan - he was resuscitated momentarily and intubated -he is sedated on Propofol and fentanyl -pt. is moving all limbs and respond to commands -CT/MRI brain are pending -suggest cut down sedation as possible/ might need to consider precedex for sedation/agitation -Brain MRI wo Gd -EEG ? -treat underlying electrolytes abnormality and infection # Acute exacerbation of CHF (congestive heart failure) -Admit the patient to the medical ICU. Patient is on vent. Fluid restriction. Maintain input output. Daily weight. Lasix 40 mg IV every 12 hours. Echocardiogram. Cardiology evaluation # Acute respiratory failure -Patient is a status post intubation. DuoNeb by nebulizer every 4 hours. Albuterol via nebulizer every 4 hours as needed. Critical care evaluation # Pneumonia -Rocephin 2 g IV daily. Zithromax to 50 mg p.o. daily. DuoNeb by nebulizer every 4 hours. Blood culture and sputum culture. Critical care evaluation #Hypertension -Hydralazine 10 mg IV every 6 hours as needed. We continue the home medication # Diabetes/ poorly controlled -G#[id number] -Hco3#18 -Humalog sliding scale every 6 hours with moderate dose coverage. Diabetic education # DVT prophylaxis -Heparin 5000 units subcu every 8 hours for DVT prophylaxis. Pepcid 20 mg p.o. twice daily for GI prophylaxis. Patient is a full code PLAN 1- Treat underling infection and electrolytes abnormalities/Glucose 2- Brain MRI refused by the pt. 4- Over all prognosis is good will follow as needed Subjective Date of service: 07/05/21 Principal diagnosis: Cardiopulmonary arrest Interval history: doing well today alert responsive , extubated follow commands refused MRI brain today Objective - Vital Sign Vital Signs - 12hr 07/04/21 07/04/21 07/04/21 22:30 23:01 23:03 Temperature Pulse Rate 81 93 H 89 Pulse Rate [ Bilateral Throughout] Pulse Rate [ From Monitor] Respiratory 20 23 22 Rate Respiratory Rate [Bilateral Throughout] Blood Pressure 158/89 169/93 169/93 O2 Sat by Pulse 95 92 96 Oximetry 07/04/21 07/05/21 07/05/21 23:30 00:00 00:30 Temperature 99.2 F Pulse Rate 80 82 78 Pulse Rate [ Bilateral Throughout] Pulse Rate [ 80 From Monitor] Respiratory 18 22 18 Rate Respiratory Rate [Bilateral Throughout] Blood Pressure 163/80 171/85 158/82 O2 Sat by Pulse 96 95 98 Oximetry 07/05/21 07/05/21 07/05/21 01:00 01:30 02:00 Temperature Pulse Rate 76 75 81 Pulse Rate [ Bilateral Throughout] Pulse Rate [ From Monitor] Respiratory 17 16 22 Rate Respiratory Rate [Bilateral Throughout] Blood Pressure 162/80 167/88 180/104 O2 Sat by Pulse 97 96 95 Oximetry 07/05/21 07/05/21 07/05/21 02:30 03:00 03:30 Temperature Pulse Rate 70 70 70 Pulse Rate [ Bilateral Throughout] Pulse Rate [ From Monitor] Respiratory 17 17 18 Rate Respiratory Rate [Bilateral Throughout] Blood Pressure 162/64 151/76 138/71 O2 Sat by Pulse 94 96 95 Oximetry 07/05/21 07/05/21 07/05/21 03:43 04:00 04:30 Temperature 98.7 F Pulse Rate 82 68 70 Pulse Rate [ Bilateral Throughout] Pulse Rate [ 70 From Monitor] Respiratory 22 17 17 Rate Respiratory Rate [Bilateral Throughout] Blood Pressure 129/69 120/78 O2 Sat by Pulse 95 95 95 Oximetry 07/05/21 07/05/21 07/05/21 05:00 05:30 06:00 Temperature Pulse Rate 71 68 73 Pulse Rate [ Bilateral Throughout] Pulse Rate [ From Monitor] Respiratory 18 17 20 Rate Respiratory Rate [Bilateral Throughout] Blood Pressure 120/78 113/71 113/71 O2 Sat by Pulse 98 93 93 Oximetry 07/05/21 07/05/21 07/05/21 06:30 06:43 07:00 Temperature Pulse Rate 74 74 Pulse Rate [ Bilateral Throughout] Pulse Rate [ From Monitor] Respiratory 26 H 25 H Rate Respiratory Rate [Bilateral Throughout] Blood Pressure 138/62 159/86 165/88 O2 Sat by Pulse 96 92 Oximetry 07/05/21 07/05/21 07/05/21 07:21 07:30 08:00 Temperature 99.9 F H Pulse Rate 66 75 Pulse Rate [ Bilateral Throughout] Pulse Rate [ From Monitor] Respiratory 19 23 Rate Respiratory Rate [Bilateral Throughout] Blood Pressure 170/78 162/88 O2 Sat by Pulse 92 93 Oximetry 07/05/21 07/05/21 07/05/21 08:30 08:40 09:00 Temperature Pulse Rate 79 83 80 Pulse Rate [ Bilateral Throughout] Pulse Rate [ From Monitor] Respiratory 26 H 26 H Rate Respiratory Rate [Bilateral Throughout] Blood Pressure 162/97 162/97 179/95 O2 Sat by Pulse 94 91 Oximetry 07/05/21 07/05/21 09:04 09:07 Temperature Pulse Rate Pulse Rate [ 77 Bilateral Throughout] Pulse Rate [ From Monitor] Respiratory Rate Respiratory 22 Rate [Bilateral Throughout] Blood Pressure O2 Sat by Pulse 95 Oximetry - General Apperance Constitutional: comfortable - EENT EENT: PERRL, mucous membranes moist - Respiratory Respiratory: lungs clear, rhonchi - Cardiovascular Cardiovascular: regular rate, normal S1, normal S2 Extremities: no peripheral edema bilat, no clubbing, cyanosis - Gastrointestinal Gastrointestinal: normoactive bowel sounds - Integumentary Integumentary: normal - Neurologic Cranial nerve examination: PERRL, EOMI, intact Speech examination: intact Detailed motor examination: grossly full strength in - Laboratory Findings CBC and BMP: 07/05/21 04:16 07/05/21 04:16 Abnormal Lab Findings: Abnormal Labs 07/03/21 07/03/21 07/03/21 21:54 21:54 21:54 WBC 11.8 H RBC 6.19 H Hgb 17.7 H Hct 55.6 H Plt Count Seg Neuts % (Manual) 36.0 L Lymphocytes % (Manual) 56.0 H Lymphocytes # (Manual) 6.6 H ABG pH POC ABG pCO2 POC ABG pO2 ABG pO2 ABG HCO3 ABG O2 Saturation ABG Base Excess ABG Hemoglobin Carboxyhemoglobin Potassium Chloride Carbon Dioxide 18 L BUN Creatinine 1.5 H Glucose 454 H POC Glucose Lactic Acid 7.20 H* AST Total Creatine Kinase CK-MB (CK-2) Urine Creatinine 07/03/21 07/03/21 07/04/21 21:54 22:00 00:39 WBC RBC Hgb Hct Plt Count Seg Neuts % (Manual) Lymphocytes % (Manual) Lymphocytes # (Manual) ABG pH 7.127 L POC ABG pCO2 56.8 H POC ABG pO2 109.0 H ABG pO2 ABG HCO3 ABG O2 Saturation ABG Base Excess ABG Hemoglobin 18.5 H Carboxyhemoglobin 0.3 L Potassium Chloride Carbon Dioxide BUN Creatinine Glucose POC Glucose Lactic Acid 3.70 H* AST Total Creatine Kinase 596 H CK-MB (CK-2) 11.1 H Urine Creatinine 07/04/21 07/04/21 07/04/21 00:55 06:19 08:40 WBC RBC Hgb Hct Plt Count Seg Neuts % (Manual) Lymphocytes % (Manual) Lymphocytes # (Manual) ABG pH POC ABG pCO2 POC ABG pO2 ABG pO2 ABG HCO3 ABG O2 Saturation ABG Base Excess ABG Hemoglobin Carboxyhemoglobin Potassium Chloride Carbon Dioxide BUN Creatinine Glucose POC Glucose 446 H 447 H 437 H Lactic Acid AST Total Creatine Kinase CK-MB (CK-2) Urine Creatinine 07/04/21 07/04/21 07/04/21 09:15 10:04 12:20 WBC RBC Hgb Hct Plt Count Seg Neuts % (Manual) Lymphocytes % (Manual) Lymphocytes # (Manual) ABG pH POC ABG pCO2 POC ABG pO2 ABG pO2 186.1 H ABG HCO3 19.0 L ABG O2 Saturation 99.2 H ABG Base Excess -3.9 L ABG Hemoglobin Carboxyhemoglobin Potassium Chloride Carbon Dioxide BUN Creatinine Glucose POC Glucose 396 H Lactic Acid 4.30 H* AST Total Creatine Kinase CK-MB (CK-2) Urine Creatinine 07/04/21 07/04/21 07/04/21 12:20 12:20 14:30 WBC 17.2 H RBC 5.41 H Hgb 16.0 H Hct 47.0 H D Plt Count Seg Neuts % (Manual) Lymphocytes % (Manual) Lymphocytes # (Manual) ABG pH POC ABG pCO2 POC ABG pO2 ABG pO2 ABG HCO3 ABG O2 Saturation ABG Base Excess ABG Hemoglobin Carboxyhemoglobin Potassium Chloride Carbon Dioxide 20 L BUN 22 H Creatinine 1.7 H Glucose 382 H POC Glucose 268 H Lactic Acid AST 68 H Total Creatine Kinase CK-MB (CK-2) Urine Creatinine 07/04/21 07/04/21 07/04/21 15:50 17:12 17:56 WBC RBC Hgb Hct Plt Count Seg Neuts % (Manual) Lymphocytes % (Manual) Lymphocytes # (Manual) ABG pH POC ABG pCO2 POC ABG pO2 ABG pO2 ABG HCO3 ABG O2 Saturation ABG Base Excess ABG Hemoglobin Carboxyhemoglobin Potassium Chloride Carbon Dioxide BUN Creatinine Glucose POC Glucose 254 H Lactic Acid 2.50 H* AST Total Creatine Kinase CK-MB (CK-2) Urine Creatinine 86.7 H 07/04/21 07/04/21 07/05/21 21:52 22:54 04:16 WBC 11.2 H RBC 5.24 H Hgb Hct Plt Count 129 L Seg Neuts % (Manual) Lymphocytes % (Manual) Lymphocytes # (Manual) ABG pH POC ABG pCO2 POC ABG pO2 ABG pO2 ABG HCO3 ABG O2 Saturation ABG Base Excess ABG Hemoglobin Carboxyhemoglobin Potassium Chloride Carbon Dioxide BUN Creatinine Glucose POC Glucose 237 H Lactic Acid 2.10 H* AST Total Creatine Kinase CK-MB (CK-2) Urine Creatinine 07/05/21 07/05/21 04:16 08:11 WBC RBC Hgb Hct Plt Count Seg Neuts % (Manual) Lymphocytes % (Manual) Lymphocytes # (Manual) ABG pH POC ABG pCO2 POC ABG pO2 ABG pO2 ABG HCO3 ABG O2 Saturation ABG Base Excess ABG Hemoglobin Carboxyhemoglobin Potassium 3.5 L Chloride 107.2 H Carbon Dioxide BUN Creatinine 1.4 H Glucose 199 H POC Glucose 247 H Lactic Acid AST Total Creatine Kinase CK-MB (CK-2) Urine Creatinine
[2021-07-05] MEDS: HEPARIN 5,000 UNIT/1 ML VIAL SUB-Q SCH ×2 (10:56→22:22)
[2021-07-05] MEDS: hydroCHLOROthiazide 25 MG TAB PO SCH (10:56)
[2021-07-05] MEDS: amLODIPine 10 MG TAB PO SCH (10:56)
[2021-07-05] MEDS: ASPIRIN 81 MG TAB CHEW PO SCH (10:56)
[2021-07-05] MEDS: FAMOTIDINE 20 MG TAB PO SCH (10:56)
--- NOTE | 2021-07-05 12:21 | Progress Note ---
Assessment and Plan 61 y/o male with cardiac arrest and diabetes. 07/05/21: Transfer to floor. Will sign off once out of unit. 1. Wean sedation to off as tolerated. Now on Diprovan 5 and still groggy but will follow commands. Fent remains as well 2. Will start weight based insulin therapy. COntinue sliding scale. Hold on feeds as patient maybe a candidate for extubation today. 3. Repeat ABG is good. Dropped fiO2 down to 50%., needs repeat CXR prior to extubation. 4. BP stable for now but may need cardene drip. No nitro as this is not good for BP and will only give patient a headache. 5. Guarded prognosis. Subjective Date of service: 07/05/21 Principal diagnosis: Cardiopulmonary arrest Interval history: No acute events. Extubated yesterday and now weaned to room air. Patient determining if he will allow cards to do heart cath. Objective Vital Signs - 12hr 07/05/21 07/05/21 07/05/21 00:30 01:00 01:30 Temperature Pulse Rate 78 76 75 Pulse Rate [ Bilateral Throughout] Pulse Rate [ From Monitor] Respiratory 18 17 16 Rate Respiratory Rate [Bilateral Throughout] Blood Pressure 158/82 162/80 167/88 O2 Sat by Pulse 98 97 96 Oximetry 07/05/21 07/05/21 07/05/21 02:00 02:30 03:00 Temperature Pulse Rate 81 70 70 Pulse Rate [ Bilateral Throughout] Pulse Rate [ From Monitor] Respiratory 22 17 17 Rate Respiratory Rate [Bilateral Throughout] Blood Pressure 180/104 162/64 151/76 O2 Sat by Pulse 95 94 96 Oximetry 07/05/21 07/05/21 07/05/21 03:30 03:43 04:00 Temperature 98.7 F Pulse Rate 70 82 68 Pulse Rate [ Bilateral Throughout] Pulse Rate [ 70 From Monitor] Respiratory 18 22 17 Rate Respiratory Rate [Bilateral Throughout] Blood Pressure 138/71 129/69 O2 Sat by Pulse 95 95 95 Oximetry 07/05/21 07/05/21 07/05/21 04:30 05:00 05:30 Temperature Pulse Rate 70 71 68 Pulse Rate [ Bilateral Throughout] Pulse Rate [ From Monitor] Respiratory 17 18 17 Rate Respiratory Rate [Bilateral Throughout] Blood Pressure 120/78 120/78 113/71 O2 Sat by Pulse 95 98 93 Oximetry 07/05/21 07/05/21 07/05/21 06:00 06:30 06:43 Temperature Pulse Rate 73 74 Pulse Rate [ Bilateral Throughout] Pulse Rate [ From Monitor] Respiratory 20 26 H Rate Respiratory Rate [Bilateral Throughout] Blood Pressure 113/71 138/62 159/86 O2 Sat by Pulse 93 96 Oximetry 07/05/21 07/05/21 07/05/21 07:00 07:21 07:30 Temperature 99.9 F H Pulse Rate 74 66 Pulse Rate [ Bilateral Throughout] Pulse Rate [ From Monitor] Respiratory 25 H 19 Rate Respiratory Rate [Bilateral Throughout] Blood Pressure 165/88 170/78 O2 Sat by Pulse 92 92 Oximetry 07/05/21 07/05/21 07/05/21 08:00 08:30 08:40 Temperature Pulse Rate 75 79 83 Pulse Rate [ Bilateral Throughout] Pulse Rate [ From Monitor] Respiratory 23 26 H Rate Respiratory Rate [Bilateral Throughout] Blood Pressure 162/88 162/97 162/97 O2 Sat by Pulse 93 94 Oximetry 07/05/21 07/05/21 07/05/21 09:00 09:04 09:07 Temperature Pulse Rate 80 Pulse Rate [ 77 Bilateral Throughout] Pulse Rate [ From Monitor] Respiratory 26 H Rate Respiratory 22 Rate [Bilateral Throughout] Blood Pressure 179/95 O2 Sat by Pulse 91 95 Oximetry 07/05/21 07/05/21 07/05/21 09:30 10:00 10:30 Temperature Pulse Rate 70 78 79 Pulse Rate [ Bilateral Throughout] Pulse Rate [ From Monitor] Respiratory 16 19 15 Rate Respiratory Rate [Bilateral Throughout] Blood Pressure 162/71 151/81 151/81 O2 Sat by Pulse 90 92 Oximetry Constitutional: no acute distress, comatose Eyes: non-icteric ENT: other (orally intubated and sedated) Neck: supple Effort: normal Ascultation: Bilateral: rales Percussion: Bilateral: not dull Cardiovascular: regular rate and rhythm Gastrointestinal: normoactive bowel sounds Integumentary: normal Extremities: no edema, pulses normal Neurologic: unable to assess CBC and BMP: 07/05/21 04:16 07/05/21 04:16 ABG, PT/INR, D-dimer: ABG ABG pH 7.421 pH Units (7.350-7.450) 07/04/21 09:15 POC ABG pCO2 56.8 mmHg (32.0-48.0) H 03/07/22 22:00 ABG pCO2 29.9 mm Hg 07/04/21 09:15 POC ABG pO2 109.0 mmHg (83-108) H 07/03/21 22:00 ABG pO2 186.1 mm Hg (80.0-90.0) H 07/04/21 09:15 POC ABG HCO3 18.3 07/03/21 22:00 ABG O2 Saturation 99.2 % (95.0-99.0) H 07/04/21 09:15 PT/INR, D-dimer PT 13.1 Sec. (12.2-14.9) 07/03/21 22:56 INR 0.90 (0.87-1.13) 07/03/21 22:56 Abnormal lab findings: Abnormal Labs 07/03/21 07/03/21 07/03/21 21:54 21:54 21:54 WBC 11.8 H RBC 6.19 H Hgb 17.7 H Hct 55.6 H Plt Count Seg Neuts % (Manual) 36.0 L Lymphocytes % (Manual) 56.0 H Lymphocytes # (Manual) 6.6 H ABG pH POC ABG pCO2 POC ABG pO2 ABG pO2 ABG HCO3 ABG O2 Saturation ABG Base Excess ABG Hemoglobin Carboxyhemoglobin Potassium Chloride Carbon Dioxide 18 L BUN Creatinine 1.5 H Glucose 454 H POC Glucose Lactic Acid 7.20 H* AST Total Creatine Kinase CK-MB (CK-2) Urine Creatinine 07/03/21 07/03/21 07/04/21 21:54 22:00 00:39 WBC RBC Hgb Hct Plt Count Seg Neuts % (Manual) Lymphocytes % (Manual) Lymphocytes # (Manual) ABG pH 7.127 L POC ABG pCO2 56.8 H POC ABG pO2 109.0 H ABG pO2 ABG HCO3 ABG O2 Saturation ABG Base Excess ABG Hemoglobin 18.5 H Carboxyhemoglobin 0.3 L Potassium Chloride Carbon Dioxide BUN Creatinine Glucose POC Glucose Lactic Acid 3.70 H* AST Total Creatine Kinase 596 H CK-MB (CK-2) 11.1 H Urine Creatinine 07/04/21 07/04/21 07/04/21 00:55 06:19 08:40 WBC RBC Hgb Hct Plt Count Seg Neuts % (Manual) Lymphocytes % (Manual) Lymphocytes # (Manual) ABG pH POC ABG pCO2 POC ABG pO2 ABG pO2 ABG HCO3 ABG O2 Saturation ABG Base Excess ABG Hemoglobin Carboxyhemoglobin Potassium Chloride Carbon Dioxide BUN Creatinine Glucose POC Glucose 446 H 447 H 437 H Lactic Acid AST Total Creatine Kinase CK-MB (CK-2) Urine Creatinine 07/04/21 07/04/21 07/04/21 09:15 10:04 12:20 WBC RBC Hgb Hct Plt Count Seg Neuts % (Manual) Lymphocytes % (Manual) Lymphocytes # (Manual) ABG pH POC ABG pCO2 POC ABG pO2 ABG pO2 186.1 H ABG HCO3 19.0 L ABG O2 Saturation 99.2 H ABG Base Excess -3.9 L ABG Hemoglobin Carboxyhemoglobin Potassium Chloride Carbon Dioxide BUN Creatinine Glucose POC Glucose 396 H Lactic Acid 4.30 H* AST Total Creatine Kinase CK-MB (CK-2) Urine Creatinine 07/04/21 07/04/21 07/04/21 12:20 12:20 14:30 WBC 17.2 H RBC 5.41 H Hgb 16.0 H Hct 47.0 H D Plt Count Seg Neuts % (Manual) Lymphocytes % (Manual) Lymphocytes # (Manual) ABG pH POC ABG pCO2 POC ABG pO2 ABG pO2 ABG HCO3 ABG O2 Saturation ABG Base Excess ABG Hemoglobin Carboxyhemoglobin Potassium Chloride Carbon Dioxide 20 L BUN 22 H Creatinine 1.7 H Glucose 382 H POC Glucose 268 H Lactic Acid AST 68 H Total Creatine Kinase CK-MB (CK-2) Urine Creatinine 07/04/21 07/04/21 07/04/21 15:50 17:12 17:56 WBC RBC Hgb Hct Plt Count Seg Neuts % (Manual) Lymphocytes % (Manual) Lymphocytes # (Manual) ABG pH POC ABG pCO2 POC ABG pO2 ABG pO2 ABG HCO3 ABG O2 Saturation ABG Base Excess ABG Hemoglobin Carboxyhemoglobin Potassium Chloride Carbon Dioxide BUN Creatinine Glucose POC Glucose 254 H Lactic Acid 2.50 H* AST Total Creatine Kinase CK-MB (CK-2) Urine Creatinine 86.7 H 07/04/21 07/04/21 07/05/21 21:52 22:54 04:16 WBC 11.2 H RBC 5.24 H Hgb Hct Plt Count 129 L Seg Neuts % (Manual) Lymphocytes % (Manual) Lymphocytes # (Manual) ABG pH POC ABG pCO2 POC ABG pO2 ABG pO2 ABG HCO3 ABG O2 Saturation ABG Base Excess ABG Hemoglobin Carboxyhemoglobin Potassium Chloride Carbon Dioxide BUN Creatinine Glucose POC Glucose 237 H Lactic Acid 2.10 H* AST Total Creatine Kinase CK-MB (CK-2) Urine Creatinine 07/05/21 07/05/21 07/05/21 04:16 08:11 12:14 WBC RBC Hgb Hct Plt Count Seg Neuts % (Manual) Lymphocytes % (Manual) Lymphocytes # (Manual) ABG pH POC ABG pCO2 POC ABG pO2 ABG pO2 ABG HCO3 ABG O2 Saturation ABG Base Excess ABG Hemoglobin Carboxyhemoglobin Potassium 3.5 L Chloride 107.2 H Carbon Dioxide BUN Creatinine 1.4 H Glucose 199 H POC Glucose 247 H 186 H Lactic Acid AST Total Creatine Kinase CK-MB (CK-2) Urine Creatinine
--- NOTE | 2021-07-05 12:53 | Progress Note ---
Assessment and Plan Assessment and plan: A/P This is a 62-year-old male with HTN, DM, CAD, CHF admitted s/p arrest with acute hypoxic respiratory failure, lactic acidosis, leukocytosis, acute kidney injury. Neuro: Acute metabolic encephalopathy (resolved) -Avoid delirium -Reorientation as needed -Maintain sleep-wake cycle -As needed analgesia -MRI brain being refused by patient -Neurology consulted, appreciate recommendations Cardiac: S/p cardiorespiratory arrest, h/o HTN, CAD, CHF -Cardiology consulted, appreciate recommendations -Blood pressure monitoring per protocol -Echocardiogram shows EF 25-30% -[facility] planned for AM -Resume home amlodipine and hctz. -Hydralazine PO added last evening Respiratory: Acute hypoxic respiratory failure -CCM consulted, appreciate recommendations -Intubated in the ED on 07/03 with 7.50 ETT at 25 at the lips and extubated 07/04 -Pulmonary hygiene -Supplemental oxygenation as needed -SPO2 monitoring GI: NAD -24 hours -1084 mL -PPI -Passed bedside swallow -CC cardiac diet (kosher/halal) -BR: Senokot : Metabolic acidosis, acute kidney injury likely secondary to vasomotor nephropathy -Consider nephrology consult if worsens -Strict intake and output -Renally dose medications -Avoid nephrotoxic medications -Daily weights -Urine lytes completed. FeNa collated 0.83 indicating prerenal ID: ? Pneumonia, lactic acidosis (improving) -Antibiotic therapy with Rocephin and azithromycin -COVID-19 PCR negative -f/u blood culture -BC x 2 07/04 -UA negative -Monitor WBC and temperature curve Endo: h/o DM -Avoid hypoglycemia -SSI -Accu-Cheks AC at bedtime -Long-acting insulin, titrate as needed Heme: Leukocytosis (improving) -Trend CBC -Transfuse hemoglobin less than 7 -Monitor for signs of bleeding -SCDs to BLE while in bed The high probability of a clinically significant, sudden or life threatening deterioration of the [resp/cv] system(s) required my full and direct attention, intervention and personal management. The aggregate critical care time was [60] minutes. This time is in addition to time spent performing reported procedures but includes the following: [x] Data Review and interpretation [x] Patient assessment and monitoring of vital signs [x] Documentation [x] Medication orders and management Disposition Plan: Transfer to floor Total Time Spent with Patient (Minutes): 60 History Interval history: This is a 61-year-old male with HTN, DM, CAD, CHF who presented to emergency department on 07/04 via EMS with respiratory distress. In route patient was given 2.5 mg of Ativan to tolerate CPAP and per documentation patient arrested upon arrival to the emergency department and was subsequently intubated. Work-up in the emergency department revealed leukocytosis, hyperglycemia, lactic acidosis and CXR was read with concerns for pneumonia, pro BNP was 342. Patient was admitted to the hospitalist service with consults to critical care, cardiology. 07/04: Patient made a COVID-19 PUI, urine lites pending, extubated. Started on Lantus. 07/05: Patient is refusing MRI which has been communicated to neurology, possible cardiac cath with cardiology. Potassium repleted. Resume home antihypertensives. Patient will be transferred to the floor. Slight improvement to renal function. COVID-19 PCR negative. Patient will be transferred to the floor. Possible left heart cath. Hospitalist Physical - Constitutional Vitals: Temp Pulse Resp BP Pulse Ox 99.9 F H 70 18 156/79 89 07/05/21 07:21 07/05/21 12:00 07/05/21 12:00 07/05/21 12:00 07/05/21 12:00 General appearance: Present: no acute distress - EENT Eyes: Present: PERRL, EOM intact ENT: hearing intact, clear oral mucosa, poor dentition - Neck Neck: Present: normal ROM - Respiratory Respiratory effort: normal Respiratory: bilateral: CTA - Cardiovascular Rhythm: regular Heart Sounds: Present: S1 & S2. Absent: systolic murmur, diastolic murmur - Extremities Extremities: no ischemia, pulses intact, pulses symmetrical, No edema, normal temperature, normal color, Full ROM Peripheral Pulses: within normal limits - Abdominal General gastrointestinal: soft, non-tender, non-distended, normal bowel sounds - Integumentary Integumentary: Present: warm, dry - Psychiatric Psychiatric: cooperative - Neurologic Neurologic: CNII-XII intact, no focal deficits, moves all extremities - Allied Health Allied health notes reviewed: nursing, RT, social work HEART Score - HEART Score Troponin: Troponin T 0.015 ng/mL (0.00-0.029) 07/03/21 21:54 Results - Labs CBC & Chem 7: 07/05/21 04:16 07/05/21 04:16 Labs: Laboratory Last Values WBC 11.2 K/mm3 (4.5-11.0) H 07/05/21 04:16 RBC 5.24 M/mm3 (3.65-5.03) H 07/05/21 04:16 Hgb 15.1 gm/dl (11.8-15.2) 07/05/21 04:16 Hct 45.2 % (35.5-45.6) 07/05/21 04:16 MCV 86 fl (84-94) 07/05/21 04:16 MCH 29 pg (28-32) 07/05/21 04:16 MCHC 33 % (32-34) 07/05/21 04:16 RDW 13.2 % (13.2-15.2) 07/05/21 04:16 Plt Count 129 K/mm3 (140-440) L 07/05/21 04:16 Lymph % (Auto) Earth Auger Operator 07/03/21 21:54 Rock % (Auto) Earth Auger Operator 07/03/21 21:54 Eos % (Auto) Earth Auger Operator 07/03/21 21:54 Baso % (Auto) Earth Auger Operator 07/03/21 21:54 Lymph # (Auto) Earth Auger Operator 07/03/21 21:54 Rock # (Auto) Earth Auger Operator 07/03/21 21:54 Eos # (Auto) Earth Auger Operator 07/03/21 21:54 Baso # (Auto) Earth Auger Operator 07/03/21 21:54 Add Manual Diff Complete 07/03/21 21:54 Total Counted 100 07/03/21 21:54 Seg Neutrophils % Earth Auger Operator 07/03/21 21:54 Seg Neuts % (Manual) 36.0 % (40.0-70.0) L 07/03/21 21:54 Band Neutrophils % 0 % 07/03/21 21:54 Lymphocytes % (Manual) 56.0 % (13.4-35.0) H 07/03/21 21:54 Reactive Lymphs % (Man) 0 % 07/03/21 21:54 Monocytes % (Manual) 7.0 % (0.0-7.3) 07/03/21 21:54 Eosinophils % (Manual) 0 % (0.0-4.3) 07/03/21 21:54 Basophils % (Manual) 1.0 % (0.0-1.8) 07/03/21 21:54 Metamyelocytes % 0 % 07/03/21 21:54 Myelocytes % 0 % 07/03/21 21:54 Promyelocytes % 0 % 07/03/21 21:54 Blast Cells % 0 % 07/03/21 21:54 Nucleated RBC % Not Reportable 07/03/21 21:54 Seg Neutrophils # Earth Auger Operator 07/03/21 21:54 Seg Neutrophils # Man 4.2 K/mm3 (1.8-7.7) 07/03/21 21:54 Band Neutrophils # 0.0 K/mm3 07/03/21 21:54 Lymphocytes # (Manual) 6.6 K/mm3 (1.2-5.4) H 07/03/21 21:54 Abs React Lymphs (Man) 0.0 K/mm3 07/03/21 21:54 Monocytes # (Manual) 0.8 K/mm3 (0.0-0.8) 07/03/21 21:54 Eosinophils # (Manual) 0.0 K/mm3 (0.0-0.4) 07/03/21 21:54 Basophils # (Manual) 0.1 K/mm3 (0.0-0.1) 07/03/21 21:54 Metamyelocytes # 0.0 K/mm3 07/03/21 21:54 Myelocytes # 0.0 K/mm3 07/03/21 21:54 Promyelocytes # 0.0 K/mm3 07/03/21 21:54 Blast Cells # 0.0 K/mm3 07/03/21 21:54 WBC Morphology Not Reportable 07/03/21 21:54 Hypersegmented Neuts Not Reportable 07/03/21 21:54 Hyposegmented Neuts Not Reportable 07/03/21 21:54 Hypogranular Neuts Not Reportable 07/03/21 21:54 Smudge Cells Not Reportable 07/03/21 21:54 Toxic Granulation Few 07/03/21 21:54 Toxic Vacuolation Not Reportable 07/03/21 21:54 Dohle Bodies Not Reportable 07/03/21 21:54 Pelger-Huet Anomaly Not Reportable 07/03/21 21:54 Keven Rods Not Reportable 07/03/21 21:54 Platelet Estimate Consistent w auto 07/03/21 21:54 Clumped Platelets Not Reportable 07/03/21 21:54 Plt Clumps, EDTA Not Reportable 07/03/21 21:54 Large Platelets Not Reportable 07/03/21 21:54 Giant Platelets Not Reportable 07/03/21 21:54 Platelet Satelliting Not Reportable 07/03/21 21:54 Plt Morphology Comment Not Reportable 07/03/21 21:54 RBC Morphology Normal 07/03/21 21:54 Dimorphic RBCs Not Reportable 07/03/21 21:54 Polychromasia Not Reportable 07/03/21 21:54 Hypochromasia Not Reportable 07/03/21 21:54 Poikilocytosis Not Reportable 07/03/21 21:54 Anisocytosis Not Reportable 07/03/21 21:54 Microcytosis Not Reportable 07/03/21 21:54 Macrocytosis Not Reportable 07/03/21 21:54 Spherocytes Not Reportable 07/03/21 21:54 Pappenheimer Bodies Not Reportable 07/03/21 21:54 Sickle Cells Not Reportable 07/03/21 21:54 Target Cells Not Reportable 07/03/21 21:54 Tear Drop Cells Not Reportable 07/03/21 21:54 Ovalocytes Not Reportable 07/03/21 21:54 Helmet Cells Not Reportable 07/03/21 21:54 [place] Bodies Not Reportable 07/03/21 21:54 [place] Rings Not Reportable 07/03/21 21:54 [place] Cells Not Reportable 07/03/21 21:54 Bite Cells Not Reportable 07/03/21 21:54 Crenated Cell Not Reportable 07/03/21 21:54 Elliptocytes Not Reportable 07/03/21 21:54 Acanthocytes (Spur) Not Reportable 07/03/21 21:54 Rouleaux Not Reportable 07/03/21 21:54 Hemoglobin C Crystals Not Reportable 07/03/21 21:54 Schistocytes Not Reportable 07/03/21 21:54 Malaria parasites Not Reportable 07/03/21 21:54 Serjio Bodies Not Reportable 07/03/21 21:54 Hem Pathologist Commnt No 07/03/21 21:54 PT 13.1 Sec. (12.2-14.9) 07/03/21 22:56 INR 0.90 (0.87-1.13) 07/03/21 22:56 ABG pH 7.421 pH Units (7.350-7.450) 07/04/21 09:15 POC ABG pCO2 56.8 mmHg (32.0-48.0) H 07/03/21 22:00 ABG pCO2 29.9 mm Hg 07/04/21 09:15 POC ABG pO2 109.0 mmHg (83-108) H 07/03/21 22:00 ABG pO2 186.1 mm Hg (80.0-90.0) H 07/04/21 09:15 POC ABG HCO3 18.3 07/03/21 22:00 ABG HCO3 19.0 mmol/L (20.0-26.0) L 07/04/21 09:15 ABG O2 Saturation 99.2 % (95.0-99.0) H 07/04/21 09:15 ABG O2 Content 23.6 (0.0-44) 07/04/21 09:15 POC ABG Base Excess -11.7 07/03/21 22:00 ABG Base Excess -3.9 mmol/L (-2.0-3.0) L 07/04/21 09:15 ABG Hemoglobin 17.0 gm/dl (14.0-18.0) 07/04/21 09:15 ABG Oxyhemoglobin 96.3 (94-98) 07/03/21 22:00 ABG Carboxyhemoglobin 1.0 % (0.0-5.0) 07/04/21 09:15 ABG Methemoglobin 0.5 % (0.0-1.5) 07/04/21 09:15 Oxyhemoglobin 97.7 % (95.0-99.0) 07/04/21 09:15 Carboxyhemoglobin 0.3 (0.5-1.5) L 07/03/21 22:00 FiO2 60 % 07/04/21 09:15 FiO2 % 100 07/03/21 22:00 Sodium 141 mmol/L (137-145) 07/05/21 04:16 Potassium 3.5 mmol/L (3.6-5.0) L 07/05/21 04:16 Chloride 107.2 mmol/L (98-107) H 07/05/21 04:16 Carbon Dioxide 23 mmol/L (22-30) 07/05/21 04:16 Anion Gap 14 mmol/L 07/05/21 04:16 BUN 16 mg/dL (9-20) 07/05/21 04:16 Creatinine 1.4 mg/dL (0.8-1.3) H 07/05/21 04:16 Estimated GFR > 60 ml/min 07/05/21 04:16 BUN/Creatinine Ratio 11 % 07/05/21 04:16 Glucose 199 mg/dL (75-100) H 07/05/21 04:16 POC Glucose 186 mg/dL (70-105) H 07/05/21 12:14 Lactic Acid 2.10 mmol/L (0.7-2.0) H* 07/04/21 22:54 Calcium 8.8 mg/dL (8.4-10.2) 07/05/21 04:16 Magnesium 1.90 mg/dL (1.7-2.3) 07/05/21 04:16 Total Bilirubin 0.80 mg/dL (0.1-1.2) 07/04/21 12:20 Direct Bilirubin < 0.2 mg/dL (0-0.2) 07/04/21 00:26 Indirect Bilirubin 0.2 mg/dL 07/04/21 00:26 AST 68 units/L (5-40) H 07/04/21 12:20 ALT 30 units/L (7-56) 07/04/21 12:20 Alkaline Phosphatase 63 units/L (35-129) 07/04/21 12:20 Total Creatine Kinase 596 units/L (55-170) H 07/03/21 21:54 CK-MB (CK-2) 11.1 ng/mL (0.0-4.0) H 07/03/21 21:54 CK-MB (CK-2) Rel Index 1.8 (0-4) 07/03/21 21:54 Troponin T 0.015 ng/mL (0.00-0.029) 07/03/21 21:54 NT-Pro-B Natriuret Pep 342.5 pg/mL (0-900) 07/03/21 23:04 Total Protein 6.9 g/dL (6.3-8.2) 07/04/21 12:20 Albumin 3.9 g/dL (3.9-5) 07/04/21 12:20 Albumin/Globulin Ratio 1.3 % 07/04/21 12:20 Lipase 21 units/L (13-60) 07/03/21 21:54 Urine Color Yellow (Yellow) 07/04/21 13:45 Urine Turbidity Clear (Clear) 07/04/21 13:45 Urine pH 5.0 (5.0-7.0) 07/04/21 13:45 Ur Specific [place] 1.009 (1.003-1.030) 07/04/21 13:45 Urine Protein 30 mg/dl mg/dL (Negative) 07/04/21 13:45 Urine Glucose (UA) >=500 mg/dL (Negative) 07/04/21 13:45 Urine Ketones Neg mg/dL (Negative) 07/04/21 13:45 Urine Blood Sm (Negative) 07/04/21 13:45 Urine Nitrite Neg (Negative) 07/04/21 13:45 Urine Bilirubin Neg (Negative) 07/04/21 13:45 Urine Urobilinogen < 2.0 mg/dL (<2.0) 07/04/21 13:45 Ur Leukocyte Esterase Neg (Negative) 07/04/21 13:45 Urine WBC (Auto) 3.0 /HPF (0.0-6.0) 07/04/21 13:45 Urine RBC (Auto) 1.0 /HPF (0.0-6.0) 07/04/21 13:45 Urine Mucus Few /HPF 07/04/21 13:45 Urine Creatinine 86.7 mg/dL (0.1-20.0) H 07/04/21 17:12 Urine Sodium 58 mmol/L 07/04/21 17:12 Urine Opiates Screen Negative 07/04/21 13:45 Urine Methadone Screen Negative 07/04/21 13:45 Ur Barbiturates Screen Negative 07/04/21 13:45 Ur Phencyclidine Scrn Negative 07/04/21 13:45 Ur Amphetamines Screen Negative 07/04/21 13:45 U Benzodiazepines Scrn Positive 07/04/21 13:45 Urine Cocaine Screen Negative 07/04/21 13:45 U Marijuana (THC) Screen Negative 07/04/21 13:45 Drugs of Abuse Note Disclamer 07/04/21 13:45 Hepatitis A IgM Ab Non-reactive (NonReactive) 07/04/21 00:26 Hep Bs Antigen Non-reactive (Negative) 07/04/21 00:26 Hep B Core IgM Ab Non-reactive (NonReactive) 07/04/21 00:26 Hepatitis C Antibody Non-reactive (NonReactive) 07/04/21 00:26 HIV 1&2 Antibody Rapid Non react (Non React) 07/04/21 00:26 HIV P24 Antigen Non react (Non React) 07/04/21 00:26 Microbiology: Microbiology 07/03/21 22:40 Tracheal Aspirate Sputum Culture - Preliminary 07/04/21 15:51 Peripheral/Venous Blood Culture - Preliminary Culture in Progress 07/04/21 15:50 Peripheral/Venous Blood Culture - Preliminary Culture in Progress [place]/IV: Voiding Method Indwelling Catheter Active Medications - Current Medications Current Medications: Generic Name Dose Route Start Last Admin Trade Name Freq PRN Reason Stop Dose Admin Acetaminophen 650 mg 07/04/21 02:20 Acetaminophen 325 Mg Tab PO Q4H PRN Pain MILD(1-3)/Fever >100.5/LANG[place] Albuterol 2.5 mg 07/04/21 02:20 Albuterol 2.5 Mg/3 Ml Nebu IH Q3HRT PRN Shortness Of Breath Albuterol/Ipratropium 1 ampul 07/04/21 20:00 07/05/21 09:04 Ipratropium/Albuterol Sulfate 3 Ml Ampul.Neb IH 1 ampul TIDRT OPHELIA Administration Amlodipine Besylate 10 mg 07/05/21 10:00 07/05/21 10:56 Amlodipine 10 Mg Tab PO 10 mg DAILY OPHELIA Administration Aspirin 81 mg 07/04/21 10:00 07/05/21 10:56 Aspirin 81 Mg Tab Chew PO 81 mg QDAY OPHELIA Administration Atorvastatin Calcium 40 mg 07/05/21 22:00 Atorvastatin 40 Mg Tab PO QHS OPHELIA Azithromycin 500 mg 07/05/21 10:00 07/05/21 10:56 Azithromycin 250 Mg Tab PO 07/08/21 10:01 500 mg QDAY OPHELIA Administration Protocol Famotidine 20 mg 07/05/21 10:00 07/05/21 10:56 Famotidine 20 Mg Tab PO 20 mg QDAY OPHELIA Administration Heparin Sodium (Porcine) 5,000 unit 07/04/21 10:00 07/05/21 10:56 Heparin 5,000 Unit/1 Ml Vial SUB-Q 5,000 unit Q12HR OPHELIA Administration Hydralazine HCl 50 mg 07/04/21 21:00 07/05/21 06:43 Hydralazine 25 Mg Tab PO 50 mg Q8HR OPHELIA Administration Hydrochlorothiazide 25 mg 07/05/21 10:00 07/05/21 10:56 Hydrochlorothiazide 25 Mg Tab PO 25 mg QDAY OPHELIA Administration Ceftriaxone Sodium 2 gm in 100 mls @ 200 mls/hr 07/04/21 03:00 07/05/21 03:00 Rocephin/Ns 2 Gm/100 Ml IV 200 mls/hr Q24H OPHELIA Administration Protocol Sodium Chloride 1,000 mls @ 42 mls/hr 07/05/21 09:45 Nacl 0.9% 1000 Ml IV 07/06/21 09:44 DIRECT OPHELIA Sodium Chloride 500 mls @ 50 mls/hr 07/05/21 10:00 07/05/21 10:57 Nacl 0.9% 500 Ml IV 07/05/21 19:59 50 mls/hr DIRECT OPHELIA Administration Insulin Glargine 15 units 07/04/21 11:00 07/04/21 12:42 Insulin Glargine 100 Units/Ml SUB-Q 15 units QHS OPHELIA Administration Insulin Human Lispro 0 unit 07/04/21 22:00 07/05/21 08:37 Insulin Lispro 100 Unit/Ml SUB-Q 4 unit ACHS OPHELIA Administration Protocol Ondansetron HCl 4 mg 07/04/21 02:20 Ondansetron 4 Mg/2 Ml Inj IV Q8H PRN Nausea And Vomiting Oxycodone/Acetaminophen 1 tab 07/05/21 07:58 Oxycodone /Acetaminophen 5-325mg Tab PO Q6H PRN Pain, Moderate (4-6) Sodium Chloride 10 ml 07/04/21 10:00 07/05/21 10:56 Sodium Chloride 0.9% 10 Ml Flush Syringe IV 10 ml BID OPHELIA Administration Sodium Chloride 10 ml 07/04/21 02:20 Sodium Chloride 0.9% 10 Ml Flush Syringe IV PRN PRN LINE FLUSH Nutrition/Malnutrition Assess - Dietary Evaluation Nutrition/Malnutrition Findings: Nutrition Notes Start: 07/04/21 15:40 Freq: Status: Active Protocol: Document 07/04/21 15:40 CLARITA (Rec: 07/04/21 15:52 CLARITA [id number]) Nutrition Notes Need for Assessment generated from: 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 Current Diet Cardiac/Consistent Carbohydrates Diet (since D ). Labs/Tests 07/04: CO2 20 BUN 22, Crea 1.7 , Glu 382. Pertinent Medications 07/04: Insulin, others nutritionally unremarkable. 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 No reports available of Pt's PO intake of meals at the time . Pt underwent cardiopulmonary arrest at arrival and was intubated immediatelly, Pt was stabilized and off sedation and mechanical ventilation at 13:10 hr, according to Progress notes and RN notes. Pt shows no signs of concern for risk of malnutrition at the time, according to Physical Assessment History notes. Pt still on critical condition , not a candidate for Nutrition Education at the time, will assess feasibility on F/U. Percent of energy/protein needs met: Prescribed Cardiac/Consistent Carbohydrates Diet provides for energy/protein needs (1, 977 Kcal/86 g) during LOS. Burn Absent Trauma Absent GI Symptoms None Food Allergy No Skin Integrity/Comment Assessment WNL. Minimum of two criteria No #1 Nutrition Diagnosis No nutrition diagnosis at this time Is patient on ventilator? No Is Patient Ambulatory and/or Out of Bed Yes REE-(Travis-St. Jeor-ambulatory/OOB) [ 2380.300 [id number]] Kcal/Kg value to use for calculation 20 Approximate Energy Requirements Using 1986 kcal/Kg Calculation Used for Recommendations Kcal/kg Additional Notes Protein: 0.8-1 g/Kg ABW; 79-99 g/day. Fluids: 1 ml/Kcal, or as per MD. Nutrition Intervention Follow-Up By: 07/11/21 Additional Comments Nutrition education will be provided on F/U, if feasible. Continue monitoring food tolerance, %PO intake of meals , and BM.
[2021-07-05] MEDS: INSULIN GLARGINE 100 UNITS/ML SUB-Q SCH (22:32)
[2021-07-05] MEDS: PHENOL 1.4% 177 ML BOTTLE MM PRN (23:07)
[2021-07-06] MEDS: hydrALAZINE 25 MG TAB PO SCH ×2 (05:40→13:30)
[2021-07-06 05:42] LABS: Hematocrit 44.3 % (35.5-45.6); Hemoglobin 14.7 gm/dl (11.8-15.2); Mean Corpuscular HGB Conc 33 % (32-34); Mean Corpuscular Volume 87 fl (84-94); Platelet Count 138 K/mm3 (140-440); Red Blood Count 5.07 M/mm3 (3.65-5.03); Red Cell Distribution Width 13.3 % (13.2-15.2)
[2021-07-06 05:52] LABS: BUN/Creatinine Ratio 11; Blood Urea Nitrogen 12 mg/dL (9-20); Calcium 9.2 mg/dL (8.4-10.2); Hemolysis Index 6
[2021-07-06] MEDS: IPRATROPIUM/ALBUTEROL SULFATE 3 ML AMPUL.NEB IH SCH ×3 (08:34→14:00)
--- NOTE | 2021-07-06 09:34 | Progress Note ---
Subjective Date of service: 07/06/21 Principal diagnosis: Cardiopulmonary arrest Interval history: FEELS OK TODAY REFUSES CATH Objective Vital Signs Temp Pulse Pulse Pulse Resp Resp BP 07/06/21 08:34 65 20 07/06/21 08:33 07/06/21 05:40 71 165/89 07/06/21 04:41 97.2 F L 71 16 165/89 07/05/21 22:22 77 180/102 07/05/21 22:00 61 07/05/21 21:29 98.3 F 77 16 180/102 07/05/21 16:37 98.7 F 82 18 205/96 07/05/21 15:10 76 29 H 163/106 07/05/21 15:00 82 22 163/106 07/05/21 14:45 83 20 07/05/21 14:30 64 18 155/83 07/05/21 14:00 66 20 148/79 07/05/21 13:30 63 16 133/67 07/05/21 13:02 98.1 F 07/05/21 13:00 71 15 164/81 07/05/21 12:30 69 18 147/78 07/05/21 12:00 70 70 19 156/79 07/05/21 11:30 73 19 152/80 07/05/21 11:00 83 28 H 167/95 07/05/21 10:30 79 15 151/81 07/05/21 10:00 78 19 151/81 Pulse Ox 07/06/21 08:34 07/06/21 08:33 96 07/06/21 05:40 07/06/21 04:41 96 07/05/21 22:22 07/05/21 22:00 96 07/05/21 21:29 98 07/05/21 16:37 97 07/05/21 15:10 94 07/05/21 15:00 91 07/05/21 14:45 07/05/21 14:30 89 07/05/21 14:00 88 07/05/21 13:30 92 07/05/21 13:02 07/05/21 13:00 93 07/05/21 12:30 91 07/05/21 12:00 95 07/05/21 11:30 88 07/05/21 11:00 88 07/05/21 10:30 07/05/21 10:00 92 - Physical Examination General: No Apparent Distress HEENT: Positive: PERRL Neck: Positive: neck supple Cardiac: Positive: Reg Rate and Rhythm Lungs: Positive: Decreased Breath Sounds Neuro: Positive: Grossly Intact Abdomen: Positive: Soft Skin: Positive: Clear Extremities: Absent: edema - Labs and Meds CBC 07/06/21 Range/Units 04:23 WBC 8.1 (4.5-11.0) K/mm3 RBC 5.07 H (3.65-5.03) M/mm3 Hgb 14.7 (11.8-15.2) gm/dl Hct 44.3 (35.5-45.6) % Plt Count 138 L (140-440) K/mm3 Comprehensive Metabolic Panel 07/06/21 Range/Units 04:23 Sodium 141 (137-145) mmol/L Potassium 3.7 (3.6-5.0) mmol/L Chloride 104.8 (98-107) mmol/L Carbon Dioxide 23 (22-30) mmol/L BUN 12 (9-20) mg/dL Creatinine 1.1 (0.8-1.3) mg/dL Glucose 157 H (75-100) mg/dL Calcium 9.2 (8.4-10.2) mg/dL
[2021-07-06] MEDS: hydroCHLOROthiazide 25 MG TAB PO SCH (09:55)
[2021-07-06] MEDS: ASPIRIN 81 MG TAB CHEW PO SCH (09:55)
[2021-07-06] MEDS: amLODIPine 10 MG TAB PO SCH (09:55)
[2021-07-06] MEDS: FAMOTIDINE 20 MG TAB PO SCH (09:55)
[2021-07-06] MEDS: INSULIN LISPRO 100 UNIT/ML SUB-Q SCH ×2 (09:56→13:30)
[2021-07-06] MEDS: HEPARIN 5,000 UNIT/1 ML VIAL SUB-Q SCH (09:56)
[2021-07-06] MEDS ORDERED: carvediloL 3.125 MG TAB PO SCH (10:00)
--- NOTE | 2021-07-06 10:38 | Progress Note ---
Assessment and Plan Assessment and Plan 61 years old male with history of hypertension and diabetes was brought to the hospital because of respiratory distress. EMS brought the patient for possible pulmonary edema. EMS gave 2.5 mg of Ativan in route so that patient could tolerate the CPAP. Patient arrested as soon as they walked in the emergency room door. Subsequently patient was intubated. - Patient Problems # Pt. is post cardiac arrest -occurred in ER after giving pt. Ativan - he was resuscitated momentarily and intubated -he is extubated -pt. is moving all limbs and respond to commands -CT is unremarkable pt. refused MRI brain -EEG unremarkable poor quality study -treat underlying electrolytes abnormality and infection # Acute exacerbation of CHF (congestive heart failure) -Admit the patient to the medical ICU. Patient is on vent. Fluid restriction. Maintain input output. Daily weight. Lasix 40 mg IV every 12 hours. Ec hocardiogram. Cardiology evaluation # Acute respiratory failure -Patient is a status post intubation. DuoNeb by nebulizer every 4 hours. Albuterol via nebulizer every 4 hours as needed. Critical care evaluation # Pneumonia -Rocephin 2 g IV daily. Zithromax to 50 mg p.o. daily. DuoNeb by nebulizer every 4 hours. Blood culture and sputum culture. Critical care evaluation #Hypertension -Hydralazine 10 mg IV every 6 hours as needed. We continue the home medication # Diabetes/ poorly controlled -G#454 -Hco3#18 -Humalog sliding scale every 6 hours with moderate dose coverage. Diabetic education # DVT prophylaxis -Heparin 5000 units subcu every 8 hours for DVT prophylaxis. Pepcid 20 mg p.o. twice daily for GI prophylaxis. Patient is a full code PLAN 1- Treat underling infection and electrolytes abnormalities/Glucose 2- Brain MRI refused by the pt. 4- Over all prognosis is good will sign off Subjective Date of service: 07/06/21 Principal diagnosis: Cardiopulmonary arrest Interval history: doing well today alert responsive , extubated follow commands refused MRI brain today No complaint Objective - Vital Sign Vital Signs - 12hr 07/06/21 07/06/21 07/06/21 04:41 05:40 08:33 Temperature 97.2 F L Pulse Rate 71 71 Pulse Rate [ Bilateral Throughout] Respiratory 16 Rate Respiratory Rate [Bilateral Throughout] Blood Pressure 165/89 165/89 O2 Sat by Pulse 96 96 Oximetry 07/06/21 07/06/21 07/06/21 08:34 09:55 09:59 Temperature Pulse Rate Pulse Rate [ 65 Bilateral Throughout] Respiratory Rate Respiratory 20 Rate [Bilateral Throughout] Blood Pressure 164/91 164/91 O2 Sat by Pulse Oximetry - General Apperance Constitutional: comfortable - EENT EENT: PERRL, mucous membranes moist - Respiratory Respiratory: chest non-tender, lungs clear, rhonchi - Cardiovascular Cardiovascular: regular rate, normal S1, normal S2 Extremities: no peripheral edema bilat, no clubbing, cyanosis - Gastrointestinal Gastrointestinal: normoactive bowel sounds - Integumentary Integumentary: normal - Neurologic Cranial nerve examination: PERRL, EOMI, intact Speech examination: intact Detailed motor examination: grossly full strength in - Laboratory Findings CBC and BMP: 07/06/21 04:23 07/06/21 04:23 Abnormal Lab Findings: Abnormal Labs 07/03/21 07/03/21 07/03/21 21:54 21:54 21:54 WBC 11.8 H RBC 6.19 H Hgb 17.7 H Hct 55.6 H Plt Count Seg Neuts % (Manual) 36.0 L Lymphocytes % (Manual) 56.0 H Lymphocytes # (Manual) 6.6 H ABG pH POC ABG pCO2 POC ABG pO2 ABG pO2 ABG HCO3 ABG O2 Saturation ABG Base Excess ABG Hemoglobin Carboxyhemoglobin Potassium Chloride Carbon Dioxide 18 L BUN Creatinine 1.5 H Glucose 454 H POC Glucose Lactic Acid 7.20 H* AST Total Creatine Kinase CK-MB (CK-2) Urine Creatinine 07/03/21 07/03/21 07/04/21 21:54 22:00 00:39 WBC RBC Hgb Hct Plt Count Seg Neuts % (Manual) Lymphocytes % (Manual) Lymphocytes # (Manual) ABG pH 7.127 L POC ABG pCO2 56.8 H POC ABG pO2 109.0 H ABG pO2 ABG HCO3 ABG O2 Saturation ABG Base Excess ABG Hemoglobin 18.5 H Carboxyhemoglobin 0.3 L Potassium Chloride Carbon Dioxide BUN Creatinine Glucose POC Glucose Lactic Acid 3.70 H* AST Total Creatine Kinase 596 H CK-MB (CK-2) 11.1 H Urine Creatinine 07/04/21 07/04/21 07/04/21 00:55 06:19 08:40 WBC RBC Hgb Hct Plt Count Seg Neuts % (Manual) Lymphocytes % (Manual) Lymphocytes # (Manual) ABG pH POC ABG pCO2 POC ABG pO2 ABG pO2 ABG HCO3 ABG O2 Saturation ABG Base Excess ABG Hemoglobin Carboxyhemoglobin Potassium Chloride Carbon Dioxide BUN Creatinine Glucose POC Glucose 446 H 447 H 437 H Lactic Acid AST Total Creatine Kinase CK-MB (CK-2) Urine Creatinine 07/04/21 07/04/21 07/04/21 09:15 10:04 12:20 WBC RBC Hgb Hct Plt Count Seg Neuts % (Manual) Lymphocytes % (Manual) Lymphocytes # (Manual) ABG pH POC ABG pCO2 POC ABG pO2 ABG pO2 186.1 H ABG HCO3 19.0 L ABG O2 Saturation 99.2 H ABG Base Excess -3.9 L ABG Hemoglobin Carboxyhemoglobin Potassium Chloride Carbon Dioxide BUN Creatinine Glucose POC Glucose 396 H Lactic Acid 4.30 H* AST Total Creatine Kinase CK-MB (CK-2) Urine Creatinine 07/04/21 07/04/21 07/04/21 12:20 12:20 14:30 WBC 17.2 H RBC 5.41 H Hgb 16.0 H Hct 47.0 H D Plt Count Seg Neuts % (Manual) Lymphocytes % (Manual) Lymphocytes # (Manual) ABG pH POC ABG pCO2 POC ABG pO2 ABG pO2 ABG HCO3 ABG O2 Saturation ABG Base Excess ABG Hemoglobin Carboxyhemoglobin Potassium Chloride Carbon Dioxide 20 L BUN 22 H Creatinine 1.7 H Glucose 382 H POC Glucose 268 H Lactic Acid AST 68 H Total Creatine Kinase CK-MB (CK-2) Urine Creatinine 07/04/21 07/04/21 07/04/21 15:50 17:12 17:56 WBC RBC Hgb Hct Plt Count Seg Neuts % (Manual) Lymphocytes % (Manual) Lymphocytes # (Manual) ABG pH POC ABG pCO2 POC ABG pO2 ABG pO2 ABG HCO3 ABG O2 Saturation ABG Base Excess ABG Hemoglobin Carboxyhemoglobin Potassium Chloride Carbon Dioxide BUN Creatinine Glucose POC Glucose 254 H Lactic Acid 2.50 H* AST Total Creatine Kinase CK-MB (CK-2) Urine Creatinine 86.7 H 07/04/21 07/04/21 07/05/21 21:52 22:54 04:16 WBC 11.2 H RBC 5.24 H Hgb Hct Plt Count 129 L Seg Neuts % (Manual) Lymphocytes % (Manual) Lymphocytes # (Manual) ABG pH POC ABG pCO2 POC ABG pO2 ABG pO2 ABG HCO3 ABG O2 Saturation ABG Base Excess ABG Hemoglobin Carboxyhemoglobin Potassium Chloride Carbon Dioxide BUN Creatinine Glucose POC Glucose 237 H Lactic Acid 2.10 H* AST Total Creatine Kinase CK-MB (CK-2) Urine Creatinine 07/05/21 07/05/21 07/05/21 04:16 08:11 12:14 WBC RBC Hgb Hct Plt Count Seg Neuts % (Manual) Lymphocytes % (Manual) Lymphocytes # (Manual) ABG pH POC ABG pCO2 POC ABG pO2 ABG pO2 ABG HCO3 ABG O2 Saturation ABG Base Excess ABG Hemoglobin Carboxyhemoglobin Potassium 3.5 L Chloride 107.2 H Carbon Dioxide BUN Creatinine 1.4 H Glucose 199 H POC Glucose 247 H 186 H Lactic Acid AST Total Creatine Kinase CK-MB (CK-2) Urine Creatinine 07/05/21 07/05/21 07/06/21 15:46 21:28 04:23 WBC RBC 5.07 H Hgb Hct Plt Count 138 L Seg Neuts % (Manual) Lymphocytes % (Manual) Lymphocytes # (Manual) ABG pH POC ABG pCO2 POC ABG pO2 ABG pO2 ABG HCO3 ABG O2 Saturation ABG Base Excess ABG Hemoglobin Carboxyhemoglobin Potassium Chloride Carbon Dioxide BUN Creatinine Glucose POC Glucose 146 H 213 H Lactic Acid AST Total Creatine Kinase CK-MB (CK-2) Urine Creatinine 07/06/21 07/06/21 04:23 08:05 WBC RBC Hgb Hct Plt Count Seg Neuts % (Manual) Lymphocytes % (Manual) Lymphocytes # (Manual) ABG pH POC ABG pCO2 POC ABG pO2 ABG pO2 ABG HCO3 ABG O2 Saturation ABG Base Excess ABG Hemoglobin Carboxyhemoglobin Potassium Chloride Carbon Dioxide BUN Creatinine Glucose 157 H POC Glucose 170 H Lactic Acid AST Total Creatine Kinase CK-MB (CK-2) Urine Creatinine
--- NOTE | 2021-07-06 11:49 | Progress Note ---
Assessment and Plan 61 y/o male with cardiac arrest and diabetes. 07/06/21: Will sign off. Call if questions. 07/05/21: Transfer to floor. Will sign off once out of unit. 1. Wean sedation to off as tolerated. Now on Diprovan 5 and still groggy but will follow commands. Fent remains as well 2. Will start weight based insulin therapy. COntinue sliding scale. Hold on feeds as patient maybe a candidate for extubation today. 3. Repeat ABG is good. Dropped fiO2 down to 50%., needs repeat CXR prior to extubation. 4. BP stable for now but may need cardene drip. No nitro as this is not good for BP and will only give patient a headache. 5. Guarded prognosis. Subjective Date of service: 07/06/21 Principal diagnosis: Cardiopulmonary arrest Interval history: Successful transfer out of unit. Per cards, refused cath Objective Vital Signs - 12hr 07/06/21 07/06/21 07/06/21 04:41 05:40 08:33 Temperature 97.2 F L Pulse Rate 71 71 Pulse Rate [ Bilateral Throughout] Respiratory 16 Rate Respiratory Rate [Bilateral Throughout] Blood Pressure 165/89 165/89 O2 Sat by Pulse 96 96 Oximetry 07/06/21 07/06/21 07/06/21 08:34 09:55 09:59 Temperature Pulse Rate Pulse Rate [ 65 Bilateral Throughout] Respiratory Rate Respiratory 20 Rate [Bilateral Throughout] Blood Pressure 164/91 164/91 O2 Sat by Pulse Oximetry Constitutional: no acute distress, comatose Eyes: non-icteric ENT: other (orally intubated and sedated) Neck: supple Effort: normal Ascultation: Bilateral: rales Percussion: Bilateral: not dull Cardiovascular: regular rate and rhythm Gastrointestinal: normoactive bowel sounds Integumentary: normal Extremities: no edema, pulses normal Neurologic: unable to assess CBC and BMP: 07/06/21 04:23 07/06/21 04:23 ABG, PT/INR, D-dimer: ABG ABG pH 7.421 pH Units (7.350-7.450) 07/04/21 09:15 POC ABG pCO2 56.8 mmHg (32.0-48.0) H 07/03/21 22:00 ABG pCO2 29.9 mm Hg 07/04/21 09:15 POC ABG pO2 109.0 mmHg (83-108) H 07/03/21 22:00 ABG pO2 186.1 mm Hg (80.0-90.0) H 07/04/21 09:15 POC ABG HCO3 18.3 07/03/21 22:00 ABG O2 Saturation 99.2 % (95.0-99.0) H 07/04/21 09:15 PT/INR, D-dimer PT 13.1 Sec. (12.2-14.9) 07/03/21 22:56 INR 0.90 (0.87-1.13) 07/03/21 22:56 Abnormal lab findings: Abnormal Labs 07/03/21 07/03/21 07/03/21 21:54 21:54 21:54 WBC 11.8 H RBC 6.19 H Hgb 17.7 H Hct 55.6 H Plt Count Seg Neuts % (Manual) 36.0 L Lymphocytes % (Manual) 56.0 H Lymphocytes # (Manual) 6.6 H ABG pH POC ABG pCO2 POC ABG pO2 ABG pO2 ABG HCO3 ABG O2 Saturation ABG Base Excess ABG Hemoglobin Carboxyhemoglobin Potassium Chloride Carbon Dioxide 18 L BUN Creatinine 1.5 H Glucose 454 H POC Glucose Lactic Acid 7.20 H* AST Total Creatine Kinase CK-MB (CK-2) Urine Creatinine 07/03/21 07/03/21 07/04/21 21:54 22:00 00:39 WBC RBC Hgb Hct Plt Count Seg Neuts % (Manual) Lymphocytes % (Manual) Lymphocytes # (Manual) ABG pH 7.127 L POC ABG pCO2 56.8 H POC ABG pO2 109.0 H ABG pO2 ABG HCO3 ABG O2 Saturation ABG Base Excess ABG Hemoglobin 18.5 H Carboxyhemoglobin 0.3 L Potassium Chloride Carbon Dioxide BUN Creatinine Glucose POC Glucose Lactic Acid 3.70 H* AST Total Creatine Kinase 596 H CK-MB (CK-2) 11.1 H Urine Creatinine 07/04/21 07/04/21 07/04/21 00:55 06:19 08:40 WBC RBC Hgb Hct Plt Count Seg Neuts % (Manual) Lymphocytes % (Manual) Lymphocytes # (Manual) ABG pH POC ABG pCO2 POC ABG pO2 ABG pO2 ABG HCO3 ABG O2 Saturation ABG Base Excess ABG Hemoglobin Carboxyhemoglobin Potassium Chloride Carbon Dioxide BUN Creatinine Glucose POC Glucose 446 H 447 H 437 H Lactic Acid AST Total Creatine Kinase CK-MB (CK-2) Urine Creatinine 07/04/21 07/04/21 07/04/21 09:15 10:04 12:20 WBC RBC Hgb Hct Plt Count Seg Neuts % (Manual) Lymphocytes % (Manual) Lymphocytes # (Manual) ABG pH POC ABG pCO2 POC ABG pO2 ABG pO2 186.1 H ABG HCO3 19.0 L ABG O2 Saturation 99.2 H ABG Base Excess -3.9 L ABG Hemoglobin Carboxyhemoglobin Potassium Chloride Carbon Dioxide BUN Creatinine Glucose POC Glucose 396 H Lactic Acid 4.30 H* AST Total Creatine Kinase CK-MB (CK-2) Urine Creatinine 07/04/21 07/04/21 07/04/21 12:20 12:20 14:30 WBC 17.2 H RBC 5.41 H Hgb 16.0 H Hct 47.0 H D Plt Count Seg Neuts % (Manual) Lymphocytes % (Manual) Lymphocytes # (Manual) ABG pH POC ABG pCO2 POC ABG pO2 ABG pO2 ABG HCO3 ABG O2 Saturation ABG Base Excess ABG Hemoglobin Carboxyhemoglobin Potassium Chloride Carbon Dioxide 20 L BUN 22 H Creatinine 1.7 H Glucose 382 H POC Glucose 268 H Lactic Acid AST 68 H Total Creatine Kinase CK-MB (CK-2) Urine Creatinine 07/04/21 07/04/21 07/04/21 15:50 17:12 17:56 WBC RBC Hgb Hct Plt Count Seg Neuts % (Manual) Lymphocytes % (Manual) Lymphocytes # (Manual) ABG pH POC ABG pCO2 POC ABG pO2 ABG pO2 ABG HCO3 ABG O2 Saturation ABG Base Excess ABG Hemoglobin Carboxyhemoglobin Potassium Chloride Carbon Dioxide BUN Creatinine Glucose POC Glucose 254 H Lactic Acid 2.50 H* AST Total Creatine Kinase CK-MB (CK-2) Urine Creatinine 86.7 H 07/04/21 07/04/21 07/05/21 21:52 22:54 04:16 WBC 11.2 H RBC 5.24 H Hgb Hct Plt Count 129 L Seg Neuts % (Manual) Lymphocytes % (Manual) Lymphocytes # (Manual) ABG pH POC ABG pCO2 POC ABG pO2 ABG pO2 ABG HCO3 ABG O2 Saturation ABG Base Excess ABG Hemoglobin Carboxyhemoglobin Potassium Chloride Carbon Dioxide BUN Creatinine Glucose POC Glucose 237 H Lactic Acid 2.10 H* AST Total Creatine Kinase CK-MB (CK-2) Urine Creatinine 07/05/21 07/05/21 07/05/21 04:16 08:11 12:14 WBC RBC Hgb Hct Plt Count Seg Neuts % (Manual) Lymphocytes % (Manual) Lymphocytes # (Manual) ABG pH POC ABG pCO2 POC ABG pO2 ABG pO2 ABG HCO3 ABG O2 Saturation ABG Base Excess ABG Hemoglobin Carboxyhemoglobin Potassium 3.5 L Chloride 107.2 H Carbon Dioxide BUN Creatinine 1.4 H Glucose 199 H POC Glucose 247 H 186 H Lactic Acid AST Total Creatine Kinase CK-MB (CK-2) Urine Creatinine 07/05/21 07/05/21 07/06/21 15:46 21:28 04:23 WBC RBC 5.07 H Hgb Hct Plt Count 138 L Seg Neuts % (Manual) Lymphocytes % (Manual) Lymphocytes # (Manual) ABG pH POC ABG pCO2 POC ABG pO2 ABG pO2 ABG HCO3 ABG O2 Saturation ABG Base Excess ABG Hemoglobin Carboxyhemoglobin Potassium Chloride Carbon Dioxide BUN Creatinine Glucose POC Glucose 146 H 213 H Lactic Acid AST Total Creatine Kinase CK-MB (CK-2) Urine Creatinine 07/06/21 07/06/21 04:23 08:05 WBC RBC Hgb Hct Plt Count Seg Neuts % (Manual) Lymphocytes % (Manual) Lymphocytes # (Manual) ABG pH POC ABG pCO2 POC ABG pO2 ABG pO2 ABG HCO3 ABG O2 Saturation ABG Base Excess ABG Hemoglobin Carboxyhemoglobin Potassium Chloride Carbon Dioxide BUN Creatinine Glucose 157 H POC Glucose 170 H Lactic Acid AST Total Creatine Kinase CK-MB (CK-2) Urine Creatinine
[2021-07-06 12:34] VITALS: BP 134/75
--- NOTE | 2021-07-06 12:38 | Discharge Summary ---
Providers - Providers Date of Admission: 07/04/21 02:20 Date of discharge: 07/06/21 Attending physician: BALJIT CARDONA MD 07/03/21 23:26 Consult to Physician [CONS] Stat Comment: Dr. Flores spoke with Dr. Pathak @ [phone] Consulting Provider: FREDO PATHAK Physician Instructions: Reason For Exam: SOB 07/04/21 02:20 Consult to Physician [CONS] Routine Comment: Consulting Provider: DINESH RAINEY Physician Instructions: Reason For Exam: chf 07/04/21 02:33 Consult to Dietitian/Nutrition [CONS] Routine Physician Instructions: Reason For Exam: Reason for Consult: Diet education 07/04/21 08:56 Consult to Physician [CONS] Routine Comment: alonzo/ nuno Consulting Provider: TANYA SIMPSON Physician Instructions: Reason For Exam: s/p arrest Primary care physician: YURIDIA CHRISTIANSON Hospitalization Reason for admission: cardiac arrest Condition: Critical Hospital course: History Interval history: This is a 61-year-old male with HTN, DM, CAD, CHF who presented to emergency department on 07/04 via EMS with respiratory distress. In route patient was given 2.5 mg of Ativan to tolerate CPAP and per documentation patient arrested upon arrival to the emergency department and was subsequently intubated. Work-up in the emergency department revealed leukocytosis, hyperglycemia, lactic acidosis and CXR was read with concerns for pneumonia, pro BNP was 342. Patient was admitted to the hospitalist service with consults to critical care, cardiology. 07/04: Patient made a COVID-19 PUI, urine lites pending, extubated. Started on Lantus. 07/05: Patient is refusing MRI which has been communicated to neurology, possible cardiac cath with cardiology. Potassium repleted. Resume home antihypertensives. Patient will be transferred to the floor. Slight improvement to renal function. COVID-19 PCR negative. Patient will be transferred to the floor. Possible left heart cath. 07/06: patient declined cath stating he would like to follow up with OP motorboat mechanic in [place]. He will be discharged home with rx for atorvastatin, amlodipine, hydralazine, aspirin, carvedilol, hydrochlorothiazide, Imdur. He was recommended to discuss initiating Entresto for heart failure with his motorboat mechanic as well as Farxiga for diabetes with his primary care doctor. He was advised to follow-up with his motorboat mechanic as an outpatient. Neuro: Acute metabolic encephalopathy (resolved) -Avoid delirium -Reorientation as needed -Maintain sleep-wake cycle -As needed analgesia -MRI brain being refused by patient -Neurology consulted, appreciate recommendations Cardiac: S/p cardiorespiratory arrest, h/o HTN, CAD, CHF -Cardiology consulted, appreciate recommendations -Blood pressure monitoring per protocol -Echocardiogram shows EF 25-30% -[facility] planned for AM -Resume home amlodipine and hctz. -Hydralazine PO added last evening Respiratory: Acute hypoxic respiratory failure -CCM consulted, appreciate recommendations -Intubated in the ED on 07/03 with 7.50 ETT at 25 at the lips and extubated 07/04 -Pulmonary hygiene -Supplemental oxygenation as needed -SPO2 monitoring GI: NAD -24 hours -1084 mL -PPI -Passed bedside swallow -CC cardiac diet (kosher/halal) -BR: Senokot : Metabolic acidosis, acute kidney injury likely secondary to vasomotor nephropathy -Consider nephrology consult if worsens -Strict intake and output -Renally dose medications -Avoid nephrotoxic medications -Daily weights -Urine lytes completed. FeNa collated 0.83 indicating prerenal ID: ? Pneumonia, lactic acidosis (improving) -Antibiotic therapy with Rocephin and azithromycin -COVID-19 PCR negative -f/u blood culture -BC x 2 07/04 -UA negative -Monitor WBC and temperature curve Endo: h/o DM -Avoid hypoglycemia -SSI -Accu-Cheks AC at bedtime -Long-acting insulin, titrate as needed Heme: Leukocytosis (improving) -Trend CBC -Transfuse hemoglobin less than 7 -Monitor for signs of bleeding -SCDs to BLE while in bed Disposition: HOME / SELF CARE / HOMELESS Final Discharge Diagnosis (Prints w/discharge instructions): cardiac arrest, HFrEF, ischemic cardiomyopathy Core Measure Documentation - Palliative Care Palliative Care/ Comfort Measures: Not Applicable - Core Measures Any of the following diagnoses?: history only Exam - Physical Exam Narrative exam: General appearance: Present: no acute distress - EENT Eyes: Present: PERRL, EOM intact ENT: hearing intact, clear oral mucosa, poor dentition - Neck Neck: Present: normal ROM - Respiratory Respiratory effort: normal Respiratory: bilateral: CTA - Cardiovascular Rhythm: regular Heart Sounds: Present: S1 & S2. Absent: systolic murmur, diastolic murmur - Extremities Extremities: no ischemia, pulses intact, pulses symmetrical, No edema, normal temperature, normal color, Full ROM Peripheral Pulses: within normal limits - Abdominal General gastrointestinal: soft, non-tender, non-distended, normal bowel sounds - Integumentary Integumentary: Present: warm, dry - Psychiatric Psychiatric: cooperative - Neurologic Neurologic: CNII-XII intact, no focal deficits, moves all extremities - Allied Health Allied health notes reviewed: nursing, RT, social work - Constitutional Vitals: Temp Pulse Resp BP Pulse Ox 97.6 F 67 18 134/75 96 07/06/21 11:33 07/06/21 11:33 07/06/21 11:33 07/06/21 11:33 07/06/21 11:33 Plan Follow up with: YURIDIA CHRISTIANSON MD [Primary Care Provider] - 7 Days Prescriptions: AtorvaSTATin [Lipitor] 40 mg PO QHS 30 Days #30 tablet amLODIPine 10 mg PO DAILY 30 Days #30 tab hydrALAZINE [Apresoline TAB] 50 mg PO Q8HR 30 Days #90 tablet Aspirin [Aspirin BABY CHEW TAB] 81 mg PO QDAY 30 Days #30 tab.chew carvediloL [Coreg] 3.125 mg PO BID 30 Days #60 tablet hydroCHLOROthiazide [HCTZ] 25 mg PO QDAY 30 Days #30 tab ISOSORBIDE MONOnitrate [Imdur ER] 30 mg PO QDAY 30 Days #30 tablet
[2021-07-06] MEDS: PHENOL 1.4% 177 ML BOTTLE MM PRN (13:31)
--- NOTE | 2021-07-07 09:09 | Electrocardiograph Report ---
[facility] Test Date: 2021-07-05 Test Time: 10:01:04 Pat Name: DILSHAD JUNE Department: Room: A392 Gender: M [employer] Supervisor: RACHEL : 1960 Requested By: DIEUDONNE WEIR Order Number: [id number] Reading MD: Peter Richardson Measurements Intervals [place] Rate: 74 P: 36 AL: 202 QRS: -76 QRSD: 120 T: 92 QT: 407 QTc: 452 Interpretive Statements Sinus rhythm Left anterior fascicular block LVH with secondary repolarization abnormality Compared to ECG 07/04/2021 07:33:48 Left anterior fascicular block now present Intraventricular conduction delay no longer present Electronically Signed On 07-07-2021 9:08:37 EST by Peter Richardson
== END 2021-07-06 15:15 | disposition home or self-care (01) | DRG 208 ==
LOC: ED 21:24 → CC1 07-04 02:20 → 3A 07-05 15:26
PROVIDERS: ADMIT Hospitalist; ATTEND Internal Medicine
PROC: 0BH17EZ Insertion of Endotracheal Airway into Trachea, Via Natural or Artificial Opening (ICD-10-PCS; principal; 2021-07-03)
PROC: 5A1935Z Respiratory Ventilation, Less than 24 Consecutive Hours (ICD-10-PCS; 2021-07-03)
PROC: 4A033R1 Measurement of Arterial Saturation, Peripheral, Percutaneous Approach (ICD-10-PCS; 2021-07-04)
DX: J96.01 Acute respiratory failure with hypoxia (principal); G93.41 Metabolic encephalopathy; N17.0 Acute kidney failure with tubular necrosis; I46.8 Cardiac arrest due to other underlying condition; I50.23 Acute on chronic systolic (congestive) heart failure; J18.9 Pneumonia, unspecified organism; I46.9 Cardiac arrest, cause unspecified; E87.2 Acidosis; I11.0 Hypertensive heart disease with heart failure; I25.5 Ischemic cardiomyopathy; I25.10 Atherosclerotic heart disease of native coronary artery without angina pectoris; D72.829 Elevated white blood cell count, unspecified; E11.65 Type 2 diabetes mellitus with hyperglycemia; Z20.822 Contact with and (suspected) exposure to COVID-19
CPT/HCPCS: 36415; 36600; 71045; 80048; 80053; 80074; 80076; 80307; 81001; 82140; 82550; 82553; 82570; 82803; 82805; 82962; 83690; 83735; 83880; 84300; 84484; 85025; 85027; 85610; 87040; 87070; 87205; 87806; 93005; 93306; 94002; 94003; 94640; 94760; G0378; J3490; Q9967; C8929; J0456; J0696; J1644; J1815; J1940; J2250; J2704; J3010; J7040; U0003